=== PATIENT | male | born 1960 | race Caucasian/White ===

== ENCOUNTER 2016-06-10 13:45 | Emergency (ER) | payer MEDICARE ==
[2016-06-10 13:53] VITALS: BP 148/97
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
== END 2016-06-10 16:26 | disposition left against medical advice (07) ==
LOC: ER 13:45
DX: R10.9 Unspecified abdominal pain (principal); R68.83 Chills (without fever); R19.7 Diarrhea, unspecified; R11.0 Nausea; Z53.20 Procedure and treatment not carried out because of patient's decision for unspecified reasons; Z87.19 Personal history of other diseases of the digestive system; Z86.718 Personal history of other venous thrombosis and embolism; Z91.041 Radiographic dye allergy status; Z88.5 Allergy status to narcotic agent; Z88.6 Allergy status to analgesic agent; Z90.49 Acquired absence of other specified parts of digestive tract
CPT/HCPCS: 99281

== ENCOUNTER 2016-11-13 17:04 | Emergency (ER) | payer MEDICARE ==
[2016-11-13 17:29] VITALS: BP 124/80
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
--- NOTE | 2016-11-13 19:00 | RADIOLOGY REPORT (SQ) ---
EXAM DESCRIPTION: TIBIA FIBULA LEFT COMPLETED DATE/TIME: 11/13/2016 6:46 pm REASON FOR STUDY: Cellulitis of the skin mid pimentel COMPARISON: None. NUMBER OF VIEWS: Two views. TECHNIQUE: Two radiographic images acquired of the left tibia and fibula to include the knee and ank le in at least one projection. LIMITATIONS: None. FINDINGS: MINERALIZATION: Normal. BONES: No acute fracture or dislocation. No worrisome bone lesions. Old healed proximal fibular kami physis fracture. Partial visualization enthesopathy involving the patella and calcaneus. SOFT TISSUES: No obvious swelling or foreign body. OTHER: No other significant finding. IMPRESSION: NO ACUTE OSSEOUS ABNORMALITY. CHRONIC CHANGES ABOVE. TECHNICAL DOCUMENTATION: JOB ID: [id number] [employer]- All Rights Reserved
--- NOTE | 2016-11-13 19:04 | RADIOLOGY REPORT (SQ) ---
EXAM DESCRIPTION: TIBIA FIBULA RIGHT COMPLETED DATE/TIME: 11/13/2016 6:46 pm REASON FOR STUDY: Cellulitis of the skin mid pimentel COMPARISON: None. NUMBER OF VIEWS: Two views. TECHNIQUE: Two radiographic images acquired of the right tibia and fibula to include the knee and an kle in at least one projection. LIMITATIONS: None. FINDINGS: MINERALIZATION: Normal. BONES: 5 mm rounded lucent lesion within the distal tibial diaphysis best seen on the front dual vie w which appears to project just deep to the anterior cortex on the lateral view. There is subtle per iosteal reaction involving the anterior cortex at this level. No additional acute or significant os seous findings. SOFT TISSUES: No obvious swelling or foreign body. OTHER: No other significant finding. IMPRESSION: 5 MM LUCENT SUBCORTICAL LESION DISTAL TIBIAL DIAPHYSIS WITH ADJACENT PERIOSTEAL REACTION DETAILED ABOVE. THIS COULD BE SEQUELA TO CHRONIC INFECTION GIVEN HISTORY OF CELLULITIS HOWEVER D IFFERENTIAL INCLUDES METASTATIC DISEASE AND MYELOMA. RECOMMEND CORRELATION WITH ANY HISTORY OF KNOWN MALIGNANCY FURTHER EVALUATION WITH CONTRAST-ENHANCED MRI. TECHNICAL DOCUMENTATION: JOB ID: [id number]- All Rights Reserved
[2016-11-13 19:20] LABS: ABSOLUTE BASOPHILS # (AUTO) 0.1 10^3/uL (0.0-0.2); ABSOLUTE EOSINOPHILS # (AUTO) 0.6 10^3/uL (0.0-0.6); ABSOLUTE LYMPHOCYTES (AUTO) 1.7 10^3/uL (0.5-4.7); ABSOLUTE MONOCYTES (AUTO) 0.7 10^3/uL (0.1-1.4); ABSOLUTE NEUT (AUTO) 4.2 10^3/uL (1.7-8.2); BASOPHILS % (AUTO) 0.7 % (0-2); EOSINOPHILS % (AUTO) 8.4 % (0-6); HEMOGLOBIN 12.6 g/dL (13.5-17.0); HGB HCT DIFFERENCE -1.2; LYMPHOCYTES % (AUTO) 23.7 % (13-45); MEAN CORPUSCULAR HEMOGLOBIN 28.5 pg (27.0-33.4); MEAN CORPUSCULAR HGB CONC 32.4 g/dL (32.0-36.0); MEAN CORPUSCULAR VOLUME 88 fl (80-97); MONOCYTES % (AUTO) 9.4 % (3-13); RED BLOOD COUNT 4.43 10^6/uL (4.35-5.55); SEGMENTED NEUTROPHILS % (AUTO) 57.8 % (42-78); WHITE BLOOD COUNT 7.3 10^3/uL (4.0-10.5)
[2016-11-13 19:33] LABS: ALANINE AMINOTRANSFERASE 38 U/L (21-72); ALBUMIN 4.3 g/dL (3.5-5.0); ALKALINE PHOSPHATASE 105 U/L (38-126); ANION GAP 14 (5-19); ASPARTATE AMINO TRANSFERASE 30 U/L (17-59); BILIRUBIN,DIRECT 0.4 mg/dL (0.0-0.4); BILIRUBIN,TOTAL 0.7 mg/dL (0.2-1.3); BLOOD UREA NITROGEN 23 mg/dL (7-20); CALCIUM 9.4 mg/dL (8.4-10.2); CARBON DIOXIDE 25 mmol/L (22-30); CHLORIDE 104 mmol/L (98-107); GLUCOSE 96 mg/dL (75-110); POTASSIUM 5.6 mmol/L (3.6-5.0); SODIUM 142.6 mmol/L (137-145); TOTAL PROTEIN 8.3 g/dL (6.3-8.2)
[2016-11-13] MEDS ORDERED: DIAZEPAM 5 MG TABLET PO ONE (19:37)
[2016-11-13] MEDS ORDERED: CLINDAMYCIN 600 MG/D5W RTU 50 ML IV ONE (21:16)
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
== END 2016-11-13 22:30 | disposition home or self-care (01) ==
LOC: ER 17:04
DX: L03.119 Cellulitis of unspecified part of limb (principal); T81.4XXA Infection following a procedure, initial encounter; M79.604 Pain in right leg; M79.605 Pain in left leg; Z98.890 Other specified postprocedural states
CPT/HCPCS: 99283; 36415; 87040; 85025; 80053; 73590 ×2; A9270

== ENCOUNTER 2016-12-11 17:17 | Emergency (ER) | payer MEDICARE ==
[2016-12-11 17:23] VITALS: BP 147/79
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
[2016-12-11 20:02] LABS: ABSOLUTE BASOPHILS # (AUTO) 0.1 10^3/uL (0.0-0.2); ABSOLUTE EOSINOPHILS # (AUTO) 0.4 10^3/uL (0.0-0.6); ABSOLUTE LYMPHOCYTES (AUTO) 2.4 10^3/uL (0.5-4.7); ABSOLUTE MONOCYTES (AUTO) 0.6 10^3/uL (0.1-1.4); ABSOLUTE NEUT (AUTO) 4.2 10^3/uL (1.7-8.2); BASOPHILS % (AUTO) 0.9 % (0-2); EOSINOPHILS % (AUTO) 5.4 % (0-6); HEMATOCRIT 38.1 % (37.9-51.0); HEMOGLOBIN 12.8 g/dL (13.5-17.0); HGB HCT DIFFERENCE 0.3; LYMPHOCYTES % (AUTO) 31.8 % (13-45); MEAN CORPUSCULAR HEMOGLOBIN 28.8 pg (27.0-33.4); MEAN CORPUSCULAR HGB CONC 33.5 g/dL (32.0-36.0); MEAN CORPUSCULAR VOLUME 86 fl (80-97); MONOCYTES % (AUTO) 7.6 % (3-13); RED BLOOD COUNT 4.44 10^6/uL (4.35-5.55); RED CELL DISTRIBUTION WIDTH 14.5 % (11.5-14.0); SEGMENTED NEUTROPHILS % (AUTO) 54.3 % (42-78); WHITE BLOOD COUNT 7.7 10^3/uL (4.0-10.5)
[2016-12-11 20:26] LABS: ALANINE AMINOTRANSFERASE 26 U/L (21-72); ALBUMIN 4.6 g/dL (3.5-5.0); ALKALINE PHOSPHATASE 102 U/L (38-126); ANION GAP 15 (5-19); ASPARTATE AMINO TRANSFERASE 36 U/L (17-59); BILIRUBIN,DIRECT 0.4 mg/dL (0.0-0.4); BILIRUBIN,TOTAL 0.7 mg/dL (0.2-1.3); BLOOD UREA NITROGEN 21 mg/dL (7-20); CALCIUM 9.6 mg/dL (8.4-10.2); CARBON DIOXIDE 24 mmol/L (22-30); CHLORIDE 106 mmol/L (98-107); CREATININE RESULT 1.32 mg/dL (0.52-1.25); GLUCOSE 81 mg/dL (75-110); POTASSIUM 4.9 mmol/L (3.6-5.0); SODIUM 145.2 mmol/L (137-145); TOTAL PROTEIN 8.8 g/dL (6.3-8.2)
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
== END 2016-12-11 23:50 | disposition home or self-care (01) ==
LOC: ER 17:17
DX: I82.502 Chronic embolism and thrombosis of unspecified deep veins of left lower extremity (principal); I87.8 Other specified disorders of veins; L98.9 Disorder of the skin and subcutaneous tissue, unspecified
CPT/HCPCS: 36415; 80053; 85025; 87040; 99283

== ENCOUNTER 2017-10-12 16:06 | Emergency (ER) | payer MEDICARE ==
[2017-10-12] MEDS ORDERED: FENTANYL CITRATE INJ/PF 100 MCG/2 ML AMPUL IV ONE ×2 (17:06→18:39)
[2017-10-12 17:28] LABS: ABSOLUTE EOSINOPHILS # (AUTO) 0.2 10^3/uL (0.0-0.6); ABSOLUTE LYMPHOCYTES (AUTO) 1.2 10^3/uL (0.5-4.7); ABSOLUTE MONOCYTES (AUTO) 0.8 10^3/uL (0.1-1.4); ABSOLUTE NEUT (AUTO) 8.5 10^3/uL (1.7-8.2); BASOPHILS % (AUTO) 0.4 % (0-2); EOSINOPHILS % (AUTO) 1.9 % (0-6); HEMATOCRIT 48.3 % (37.9-51.0); LYMPHOCYTES % (AUTO) 11.1 % (13-45); MEAN CORPUSCULAR HEMOGLOBIN 27.3 pg (27.0-33.4); MEAN CORPUSCULAR VOLUME 83 fl (80-97); MONOCYTES % (AUTO) 7.1 % (3-13); PLATELET COUNT 437 10^3/uL (150-450); RED BLOOD COUNT 5.84 10^6/uL (4.35-5.55); RED CELL DISTRIBUTION WIDTH 15.6 % (11.5-14.0); SEGMENTED NEUTROPHILS % (AUTO) 79.5 % (42-78); TOTAL CELLS COUNTED % (AUTO) 100 %; WHITE BLOOD COUNT 10.7 10^3/uL (4.0-10.5)
[2017-10-12] MEDS ORDERED: METOCLOPRAMIDE HCL INJ/PF 10 MG/2 ML SDV IV ONE (17:33)
[2017-10-12 17:51] LABS: ALANINE AMINOTRANSFERASE 50 U/L (21-72); ALBUMIN 4.3 g/dL (3.5-5.0); ALKALINE PHOSPHATASE 81 U/L (38-126); ANION GAP 11 (5-19); ASPARTATE AMINO TRANSFERASE 55 U/L (17-59); BILIRUBIN,DIRECT 0.4 mg/dL (0.0-0.4); BILIRUBIN,TOTAL 0.8 mg/dL (0.2-1.3); BLOOD UREA NITROGEN 20 mg/dL (7-20); CALCIUM 9.7 mg/dL (8.4-10.2); CARBON DIOXIDE 29 mmol/L (22-30); CHLORIDE 102 mmol/L (98-107); GLUCOSE 87 mg/dL (75-110); LIPASE 38.1 U/L (23-300); POTASSIUM 5.6 mmol/L (3.6-5.0); SODIUM 142.4 mmol/L (137-145)
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
--- NOTE | 2017-10-12 18:07 | RADIOLOGY REPORT (SQ) ---
EXAM DESCRIPTION: CT LTD RENAL STONE PROTOCOL ON COMPLETED DATE/TIME: 10/12/2017 5:52 pm REASON FOR STUDY: right flank pain COMPARISON: 05/12/2012 TECHNIQUE: CT scan of the abdomen and pelvis performed without intravenous or oral contrast. Images reviewed with lung, soft tissue, and bone windows. Reconstructed coronal and sagittal MPR images revi ewed. All images stored on PACS. All CT scanners at this facility use dose modulation, iterative reconstruction, and/or weight based d osing when appropriate to reduce radiation dose to as low as reasonably achievable (ALARA). [facility]: Dose Right [facility]: CareDose [facility]: Dose Right [facility]: Teradose 4D [facility]: [employer] RADIATION DOSE: mGy. LIMITATIONS: None. FINDINGS: LOWER CHEST: No significant findings. No nodules or infiltrates. NON-CONTRASTED LIVER, SPLEEN, ADRENALS: Evaluation limited by lack of IV contrast. No identified sign ificant masses. PANCREAS: No masses. No peripancreatic inflammatory changes. GALLBLADDER: Surgically absent. RIGHT KIDNEY AND URETER: No suspicious masses. Assessment limited by lack of IV contrast. A tiny no nobstructing calculus is seen in the right kidney on image 47 series 601. No hydronephrosis or hydr oureter. LEFT KIDNEY AND URETER: No suspicious masses. Assessment limited by lack of IV contrast. No signifi cant calcifications. No hydronephrosis or hydroureter. AORTA AND RETROPERITONEUM: There are some mildly dilated loops of jejunum. There appears to be a tra nsition point just to the right of the midline. BOWEL AND PERITONEAL CAVITY: No obvious masses or inflammatory changes. No free fluid. APPENDIX: Normal. PELVIS, BLADDER, AND ABDOMINAL WALL:No abnormal masses. No free fluid. Bladder normal. BONES: Mild scoliosis and degenerative disc changes. Anterolisthesis of L5 on S1 with bilateral pars defects. OTHER: No other significant finding. IMPRESSION: 1. There is a tiny nonobstructing right renal calculus. There is no ureteral stone or obstruction. 2. Mildly dilated small bowel as described. Cannot entirely rule out a partial small bowel obstruct ion. 3. Anterolisthesis of L5 on S1 with bilateral spondylolysis. Mild scoliosis. Mild degenerative dis c changes. COMMENT: Quality ID # [id number]: Final reports with documentation of one or more dose reduction techniques (e.g., Automated exposure control, adjustment of the mA and/or kV according to patient size, use of iterative reconstruction technique) TECHNICAL DOCUMENTATION: JOB ID: [id number] [employer]- All Rights Reserved Reading location - IP/workstation name: [email or web address]
[2017-10-12 18:37] LABS: APPEARANCE,URINE SLIGHTLY-CLOUDY; BILIRUBIN,URINE NEGATIVE (NEGATIVE); COLOR,URINE AMBER; GLUCOSE, URINE NEGATIVE (NEGATIVE); KETONES,URINE 20 mg/dL (NEGATIVE); LEUKOCYTE ESTERASE,URINE TRACE (NEGATIVE); NITRITE,URINE NEGATIVE (NEGATIVE); PROTEIN,URINE 100 mg/dL (NEGATIVE); URINE SPECIFIC GRAVITY 1.026
[2017-10-12] MEDS ORDERED: DICYCLOMINE HCL 20 MG TABLET PO ONE (18:39)
[2017-10-12 19:04] VITALS: BP 142/74
== END 2017-10-12 19:14 | disposition home or self-care (01) ==
LOC: ER 16:06
DX: R10.11 Right upper quadrant pain (principal); R11.2 Nausea with vomiting, unspecified; Z90.49 Acquired absence of other specified parts of digestive tract
CPT/HCPCS: 96376; 99284; 96374; 96375; 36415; 83690; 85025; 80053; 81001; 76380; A9270; J3010; J2765; J3490

== ENCOUNTER 2018-01-16 18:52 | Emergency (ER) | payer MEDICARE ==
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
[2018-01-16] MEDS ORDERED: FENTANYL CITRATE INJ/PF 100 MCG/2 ML AMPUL IV PRN (19:41)
[2018-01-16] MEDS ORDERED: RINGERS SOLUTION,LACTATED 1,000 ML IV ONE (19:41)
--- NOTE | 2018-01-16 20:18 | RADIOLOGY REPORT (SQ) ---
EXAM DESCRIPTION: CT ABD/PELVIS NO ORAL OR IV COMPLETED DATE/TIME: 01/16/2018 7:57 pm REASON FOR STUDY: abdominal trauma COMPARISON: 05/03/2016 TECHNIQUE: CT scan of the abdomen and pelvis performed without intravenous or oral contrast. Images reviewed with lung, soft tissue, and bone windows. Reconstructed coronal and sagittal MPR images revi ewed. All images stored on PACS. All CT scanners at this facility use dose modulation, iterative reconstruction, and/or weight based d osing when appropriate to reduce radiation dose to as low as reasonably achievable (ALARA). [facility]: Dose Right [facility]: CareDose [facility]: Dose Right [facility]: Teradose 4D [facility]: Smart [employer] RADIATION DOSE: CT Rad equipment meets quality standard of care and radiation dose reduction techniq ues were employed. CTDIvol: 12.1 mGy. DLP: 643 mGy-cm.mGy. LIMITATIONS: None. FINDINGS: LOWER CHEST: No significant findings. No nodules or infiltrates. NON-CONTRASTED LIVER, SPLEEN, ADRENALS: Evaluation limited by lack of IV contrast. No identified sign ificant masses. PANCREAS: No masses. No peripancreatic inflammatory changes. GALLBLADDER: Surgically absent. RIGHT KIDNEY AND URETER: No suspicious masses. Assessment limited by lack of IV contrast. 1 mm ston e lower pole. No hydronephrosis or hydroureter. LEFT KIDNEY AND URETER: No suspicious masses. Assessment limited by lack of IV contrast. No signifi cant calcifications. No hydronephrosis or hydroureter. AORTA AND RETROPERITONEUM: No aneurysm. IVC filter. BOWEL AND PERITONEAL CAVITY: No obvious masses or inflammatory changes. No free fluid. APPENDIX: Not visualized. PELVIS, BLADDER, AND ABDOMINAL WALL:Chronic dilated pelvic veins. Postsurgical changes anterior abdo chayo wall. Chronic diastases of the rectus musculature. BONES: No acute findings. OTHER: No other significant finding. IMPRESSION: No acute findings. No significant change. COMMENT: Quality ID # [id number]: Final reports with documentation of one or more dose reduction techniques (e.g., Automated exposure control, adjustment of the mA and/or kV according to patient size, use of iterative reconstruction technique) TECHNICAL DOCUMENTATION: JOB ID: [id number] [employer]- All Rights Reserved Reading location - IP/workstation name: [email or web address]
[2018-01-16 20:20] LABS: ABSOLUTE BASOPHILS # (AUTO) 0.1 10^3/uL (0.0-0.2); ABSOLUTE EOSINOPHILS # (AUTO) 0.2 10^3/uL (0.0-0.6); ABSOLUTE LYMPHOCYTES (AUTO) 1.6 10^3/uL (0.5-4.7); ABSOLUTE MONOCYTES (AUTO) 0.8 10^3/uL (0.1-1.4); ABSOLUTE NEUT (AUTO) 4.3 10^3/uL (1.7-8.2); BASOPHILS % (AUTO) 1.8 % (0-2); EOSINOPHILS % (AUTO) 3.4 % (0-6); HEMATOCRIT 43.9 % (37.9-51.0); HEMOGLOBIN 14.6 g/dL (13.5-17.0); LYMPHOCYTES % (AUTO) 22.8 % (13-45); MEAN CORPUSCULAR HEMOGLOBIN 27.1 pg (27.0-33.4); MEAN CORPUSCULAR HGB CONC 33.2 g/dL (32.0-36.0); MEAN CORPUSCULAR VOLUME 82 fl (80-97); MONOCYTES % (AUTO) 11.3 % (3-13); PLATELET COUNT 364 10^3/uL (150-450); RED BLOOD COUNT 5.38 10^6/uL (4.35-5.55); RED CELL DISTRIBUTION WIDTH 17.3 % (11.5-14.0); SEGMENTED NEUTROPHILS % (AUTO) 60.7 % (42-78); TOTAL CELLS COUNTED % (AUTO) 100 %
[2018-01-16 20:33] LABS: ANION GAP 9 (5-19); BLOOD UREA NITROGEN 14 mg/dL (7-20); CALCIUM 9.6 mg/dL (8.4-10.2); CARBON DIOXIDE 29 mmol/L (22-30); CHLORIDE 103 mmol/L (98-107); CREATINE KINASE 641 U/L (55-170); GLUCOSE 89 mg/dL (75-110); POTASSIUM 5.1 mmol/L (3.6-5.0); SODIUM 141.1 mmol/L (137-145)
[2018-01-16] MEDS ORDERED: KETOROLAC TROMETHAMINE INJ/PF 30 MG/1 ML SDV IV ONE (21:02)
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
[2018-01-16 22:00] VITALS: BP 148/77
== END 2018-01-16 21:40 | disposition home or self-care (01) ==
LOC: ER 18:52
DX: S39.91XA Unspecified injury of abdomen, initial encounter (principal); R10.30 Lower abdominal pain, unspecified; W20.8XXA Other cause of strike by thrown, projected or falling object, initial encounter; Z87.19 Personal history of other diseases of the digestive system; Z98.890 Other specified postprocedural states; Z88.5 Allergy status to narcotic agent; Z91.041 Radiographic dye allergy status
CPT/HCPCS: 99284; 96361; 96374; 96375; 36415; 82550; 85025; 80048; 74176; J3010; J1885; J7120

== ENCOUNTER 2018-05-19 11:18 | Inpatient (IN) | payer MEDICARE ==
[2018-05-19] MEDS ORDERED: ASPIRIN 81 MG TABLET, CHEWABLE PO ONE (11:30)
[2018-05-19] MEDS ORDERED: DILTIAZEM HCL INJ 25 MG/5 ML VIAL IV ONE (11:45)
[2018-05-19] MEDS ORDERED: DILTIAZEM HCL/D5W 125 MG/125 ML RTUINJ IV PRN ×2 (11:45→17:01)
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
[2018-05-19 11:47] LABS: ABSOLUTE EOSINOPHILS # (AUTO) 0.1 10^3/uL (0.0-0.6); ABSOLUTE LYMPHOCYTES (AUTO) 1.4 10^3/uL (0.5-4.7); ABSOLUTE NEUT (AUTO) 4.1 10^3/uL (1.7-8.2); BASOPHILS % (AUTO) 0.6 % (0-2); EOSINOPHILS % (AUTO) 0.9 % (0-6); HEMATOCRIT 46.6 % (37.9-51.0); HEMOGLOBIN 15.3 g/dL (13.5-17.0); LYMPHOCYTES % (AUTO) 21.2 % (13-45); MEAN CORPUSCULAR HEMOGLOBIN 26.8 pg (27.0-33.4); MEAN CORPUSCULAR VOLUME 81 fl (80-97); MONOCYTES % (AUTO) 15.3 % (3-13); PLATELET COUNT 318 10^3/uL (150-450); RED BLOOD COUNT 5.73 10^6/uL (4.35-5.55); RED CELL DISTRIBUTION WIDTH 17.1 % (11.5-14.0); TOTAL CELLS COUNTED % (AUTO) 100 %; WHITE BLOOD COUNT 6.6 10^3/uL (4.0-10.5)
[2018-05-19] MEDS ORDERED: LORAZEPAM INJ 2 MG/1 ML VIAL IV ONE (12:02)
[2018-05-19 12:08] LABS: ALANINE AMINOTRANSFERASE 48 U/L (21-72); ALBUMIN 4.2 g/dL (3.5-5.0); ALKALINE PHOSPHATASE 51 U/L (38-126); ANION GAP 8 (5-19); ASPARTATE AMINO TRANSFERASE 53 U/L (17-59); BILIRUBIN,DIRECT 0.3 mg/dL (0.0-0.4); BILIRUBIN,TOTAL 1.1 mg/dL (0.2-1.3); BLOOD UREA NITROGEN 33 mg/dL (7-20); CARBON DIOXIDE 28 mmol/L (22-30); CHLORIDE 106 mmol/L (98-107); CREATINE KINASE 468 U/L (55-170); GLUCOSE 102 mg/dL (75-110); SODIUM 141.9 mmol/L (137-145); TOTAL PROTEIN 7.4 g/dL (6.3-8.2)
[2018-05-19 12:21] LABS: CREATINE KINASE MB 8.06 ng/mL (<4.55)
--- NOTE | 2018-05-19 12:22 | EKG REPORT ---
SEVERITY:- ABNORMAL ECG - ATRIAL FIBRILLATION, V-RATE 120-195 : Confirmed by: Darryl Rudd MD 19-May-2018 12:21:22
[2018-05-19 12:31] LABS: TROPONIN I 0.14 ng/mL
--- NOTE | 2018-05-19 12:32 | RADIOLOGY REPORT (SQ) ---
EXAM DESCRIPTION: CHEST SINGLE VIEW COMPLETED DATE/TIME: 05/19/2018 12:19 pm REASON FOR STUDY: chest COMPARISON: 05/09/2016, 01/20/2012 EXAM PARAMETERS: NUMBER OF VIEWS: One view. TECHNIQUE: Single frontal radiographic view of the chest acquired. RADIATION DOSE: NA LIMITATIONS: None. FINDINGS: LUNGS AND PLEURA: Stable lingular scarring. No new Opacities, masses or pneumothorax. No pleural effusion. MEDIASTINUM AND HILAR STRUCTURES: No masses. Contour normal. HEART AND VASCULAR STRUCTURES: Heart normal in size. Normal vasculature. BONES: No acute findings. HARDWARE: None in the chest. OTHER: No other significant finding. IMPRESSION: No evidence of acute cardiopulmonary process. TECHNICAL DOCUMENTATION: JOB ID: [id number] [employer]- All Rights Reserved Reading location - IP/workstation name: [email or web address]
[2018-05-19] MEDS ORDERED: ONDANSETRON 4 MG TAB.RAPDIS PO PRN (14:52)
[2018-05-19] MEDS ORDERED: DOCUSATE SODIUM 100 MG CAPSULE PO PRN (14:52)
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
[2018-05-19] MEDS: LORAZEPAM 1 MG TABLET PO PRN ×2 (16:42→21:13)
[2018-05-19] MEDS: ASPIRIN 81 MG TABLET, ENT COATED PO SCH (18:17)
[2018-05-19] MEDS: APIXABAN 5 MG TABLET PO SCH (18:18)
[2018-05-19] MEDS: DILTIAZEM HCL 60 MG TABLET PO SCH ×2 (18:18→23:14)
[2018-05-19] MEDS: FAMOTIDINE 20 MG TABLET PO SCH (21:08)
[2018-05-19] MEDS ORDERED: QUETIAPINE FUMARATE 100 MG TABLET PO SCH (22:00)
[2018-05-19] MEDS ORDERED: (PENDING PHARMACY ID) (Quetiapine Fumarate [Seroquel] 400 MG) PO SCH (22:00)
[2018-05-19] MEDS ORDERED: (PENDING PHARMACY ID) (Quetiapine Fumarate [Seroquel] 300 MG) PO SCH (22:00)
[2018-05-19] MEDS ORDERED: MELATONIN 5 MG TABLET PO SCH (22:00)
[2018-05-19] MEDS ORDERED: ZOLPIDEM TARTRATE 5 MG TABLET PO SCH (22:00)
[2018-05-19] MEDS ORDERED: (PENDING PHARMACY ID) (Melatonin [Melatonin] 10 MG) PO SCH (22:00)
[2018-05-19] MEDS ORDERED: (PENDING PHARMACY ID) (Buprenorphine Hcl/Naloxone Hcl [Suboxone 8 Mg-2 Mg Sl Film] 1 FILM) SL SCH ×2 (22:00)
[2018-05-19] MEDS ORDERED: (PENDING PHARMACY ID) (Zolpidem Tartrate [Ambien] 10 MG) PO SCH (22:00)
[2018-05-19] MEDS ORDERED: SUBOXONE SL SCH (22:00)
[2018-05-19] MEDS: SUBOXONE SL SCH (22:42)
[2018-05-19] MEDS: BUSPIRONE HCL 10 MG TABLET PO SCH (22:44)
[2018-05-20] MEDS ORDERED: DILTIAZEM HCL 60 MG TABLET PO ONE (01:11)
[2018-05-20] MEDS ORDERED: METOPROLOL TARTRATE 100 MG TABLET PO ONE (01:11)
[2018-05-20] MEDS: LORAZEPAM 1 MG TABLET PO PRN ×3 (01:30→10:00)
[2018-05-20] MEDS ORDERED: DILTIAZEM HCL 180 MG CAPSULE.CR PO SCH (06:00)
[2018-05-20 07:32] LABS: ABSOLUTE EOSINOPHILS # (AUTO) 0.1 10^3/uL (0.0-0.6); ABSOLUTE LYMPHOCYTES (AUTO) 1.3 10^3/uL (0.5-4.7); ABSOLUTE MONOCYTES (AUTO) 0.7 10^3/uL (0.1-1.4); ABSOLUTE NEUT (AUTO) 4.8 10^3/uL (1.7-8.2); BASOPHILS % (AUTO) 0.7 % (0-2); EOSINOPHILS % (AUTO) 0.8 % (0-6); HEMATOCRIT 47.3 % (37.9-51.0); HEMOGLOBIN 15.7 g/dL (13.5-17.0); LYMPHOCYTES % (AUTO) 18.3 % (13-45); MEAN CORPUSCULAR HEMOGLOBIN 26.7 pg (27.0-33.4); MEAN CORPUSCULAR HGB CONC 33.2 g/dL (32.0-36.0); MEAN CORPUSCULAR VOLUME 81 fl (80-97); MONOCYTES % (AUTO) 10.7 % (3-13); PLATELET COUNT 302 10^3/uL (150-450); RED BLOOD COUNT 5.88 10^6/uL (4.35-5.55); RED CELL DISTRIBUTION WIDTH 16.5 % (11.5-14.0); SEGMENTED NEUTROPHILS % (AUTO) 69.5 % (42-78); TOTAL CELLS COUNTED % (AUTO) 100 %; WHITE BLOOD COUNT 6.9 10^3/uL (4.0-10.5)
[2018-05-20 07:40] LABS: ANION GAP 8 (5-19); BLOOD UREA NITROGEN 26 mg/dL (7-20); CALCIUM 8.9 mg/dL (8.4-10.2); CARBON DIOXIDE 23 mmol/L (22-30); CHLORIDE 106 mmol/L (98-107); GLUCOSE 114 mg/dL (75-110); POTASSIUM 5.8 mmol/L (3.6-5.0); SODIUM 136.7 mmol/L (137-145)
--- NOTE | 2018-05-20 07:44 | EKG REPORT ---
SEVERITY:- ABNORMAL ECG - ATRIAL FIBRILLATION : Confirmed by: Darryl Rudd MD 20-May-2018 07:43:51
[2018-05-20] MEDS ORDERED: DIGOXIN INJ 0.5 MG/2 ML AMPULE ONE (08:03)
[2018-05-20] MEDS: SUBOXONE SL SCH (08:30)
[2018-05-20] MEDS: APIXABAN 5 MG TABLET PO SCH (09:59)
[2018-05-20] MEDS: ASPIRIN 81 MG TABLET, ENT COATED PO SCH (09:59)
[2018-05-20] MEDS: FAMOTIDINE 20 MG TABLET PO SCH (10:00)
[2018-05-20] MEDS ORDERED: IRON PO SCH (10:00)
[2018-05-20] MEDS: BUSPIRONE HCL 10 MG TABLET PO SCH (10:00)
[2018-05-20] MEDS ORDERED: MULTIVIT MIN PO SCH (10:00)
[2018-05-20] MEDS ORDERED: MULTIVITAMINS W-IRON TABLET, CHEWABLE PO SCH (10:00)
[2018-05-20] MEDS ORDERED: [UNRECOGNIZED DRUG - OTHER] PO SCH (10:00)
[2018-05-20] MEDS ORDERED: METOPROLOL SUCCINATE 50 MG TAB.SR.24H PO SCH (10:00)
[2018-05-20] MEDS ORDERED: FOLIC PO SCH (10:00)
[2018-05-20 14:34] VITALS: BP 133/85
--- NOTE | 2018-05-20 18:55 | PDOC DISCHARGE SUMMARY ---
General - Admit/Disc Date/PCP Admission Date/Primary Care Provider: 05/19/18 14:52 Discharge Date: 05/20/18 - Discharge Diagnosis (1) Atrial fibrillation with RVR Is this a current diagnosis for this admission?: Yes Summary: The patient exhibited the most control with extended release diltiazem and digoxin. He will be discharged on extended release diltiazem 360 mg daily as well as 0.125 mg of digoxin. I have referred him to Dr. Seymour as an outpatient. He also started the patient on apixaban for anticoagulation. (2) Low testosterone in male Is this a current diagnosis for this admission?: Yes Summary: The patient has been using AndroGel. I did check his serum testosterone level. It was 2009. Normal range for this laboratory is up to 623. I told the patient that he must stop the testosterone supplement and not use it until a level is rechecked. The markedly elevated levels could be contributing to mood changes and potentially cardiac issues. (3) Dehydration Is this a current diagnosis for this admission?: Yes Summary: The patient had an elevated BUN at the time of admission. His glomerular filtration rate was greater than 60. He did not have an acute kidney injury and his BUN improved overnight. (4) Depression with anxiety Is this a current diagnosis for this admission?: Yes Summary: Continue home medications. - Additional Information Resuscitation Status: Full Code Discharge Diet: Cardiac Discharge Activity: Balance Activity w/Rest Prescriptions: Apixaban [Eliquis 5 mg Tablet] 5 mg PO BID 30 Days #60 tablet Digoxin 125 mcg PO DAILY 30 Days #30 tablet Diltiazem HCl [Cardizem Cd 180 mg Capsule] 360 mg PO Q6AM 30 Days #30 capsule.cr Home Medications: Melatonin 10 mg PO QHS 08/13/12 Aspirin [Aspirin EC] 81 mg PO DAILY 05/10/16 Buprenorphine HCl/Naloxone HCl [Suboxone 8 mg-2 mg Sl Film] 1 film SL Q12 05/19/18 Buspirone HCl [Buspar 10 mg Tablet] 10 mg PO Q12 05/19/18 Multivit-Min/Iron/Folic/Vit K1 [Centrum Chewables Adult Chw Tb] 1 each PO DAILY 05/19/18 Quetiapine Fumarate [Seroquel 100 mg Tablet] 700 mg PO QHS 05/19/18 Zolpidem Tartrate [Ambien] 10 mg PO QHS 05/19/18 Apixaban [Eliquis 5 mg Tablet] 5 mg PO BID 30 Days #60 tablet 05/20/18 Digoxin 125 mcg PO DAILY 30 Days #30 tablet 05/20/18 Diltiazem HCl [Cardizem Cd 180 mg Capsule] 360 mg PO Q6AM 30 Days #30 capsule.cr 05/20/18 Docusate Sodium [Colace 100 mg Capsule] 100 mg PO BIDP PRN capsule 05/20/18 Quetiapine Fumarate [Seroquel 100 mg Tablet] 700 mg PO QHS tablet 05/20/18 History of Present Illness Patient complains of: Rapid heartbeat History of Present Illness: The patient was working in his yard the day before admission. While cutting down a tree it almost fell on him. It was quite a startling event. From then on he noticed some discomfort in his chest. He had increased anxiety. He had trouble sleeping. At the gym the next morning the exercise equipment monitoring manager revealed a pulse of 180. He went to urgent care and they confirmed his tachycardia. He then presented to the emergency department. Hospital Course Hospital Course: The patient was initially placed on diltiazem infusion. He initially exhibited good control but later in the evening metoprolol was added. He was still having some breakthrough tachycardia and he was given digoxin. The combination of digoxin and diltiazem seemed most effective. Unfortunately the patient refused to comply with his cardiac diet. He refused to acknowledge that anything was wrong with his heart. He wanted to catch up and eventually ordered a pizza deliver to his room. He was threatening to leave AGAINST MEDICAL ADVICE. Because his heart rate was in the 70s I did send him home on extended release diltiazem 360 mg a day as well as digoxin 0.125 mg daily. He was also started on apixaban for anticoagulation. We set up an appointment for follow-up with cardiology after discharge. I did tell him not to go to the gym until he sees cardiology. In addition I instructed him not to utilize his AndroGel until a repeat laboratory study reveals that he is back in the normal range. Physical Exam Vital Signs: Temp Pulse Resp BP Pulse Ox 98.7 F 48 L 18 133/85 H 97 05/20/18 14:21 05/20/18 14:21 05/20/18 14:21 05/20/18 14:21 05/20/18 14:21 Intake & Output 05/19/18 05/20/18 05/21/18 06:59 06:59 06:59 Intake Total 676 525 Output Total 625 Balance 51 525 Weight 94.3 kg General appearance: PRESENT: no acute distress Respiratory exam: PRESENT: clear to auscultation natividad, symmetrical, unlabored. ABSENT: rales, rhonchi, wheezes Cardiovascular exam: PRESENT: irregular rhythm GI/Abdominal exam: PRESENT: normal bowel sounds, soft. ABSENT: distended, tenderness Neurological exam: PRESENT: alert, awake, oriented to person, oriented to place, oriented to time, oriented to situation Psychiatric exam: PRESENT: anxious Results Laboratory Results: 05/20/18 07:03 05/20/18 07:03 05/20/18 05/20/18 07:03 07:03 WBC 6.9 RBC 5.88 H Hgb 15.7 Hct 47.3 MCV 81 MCH 26.7 L MCHC 33.2 RDW 16.5 H Plt Count 302 Seg Neutrophils % 69.5 Lymphocytes % 18.3 Monocytes % 10.7 Eosinophils % 0.8 Basophils % 0.7 Absolute Neutrophils 4.8 Absolute Lymphocytes 1.3 Absolute Monocytes 0.7 Absolute Eosinophils 0.1 Absolute Basophils 0.0 Sodium 136.7 L Potassium 5.8 H Chloride 106 Carbon Dioxide 23 Anion Gap 8 BUN 26 H Creatinine 1.18 Est GFR ( Amer) > 60 Est GFR (Non-Af Amer) > 60 Glucose 114 H Calcium 8.9 Magnesium 2.0 05/19/18 05/19/18 05/19/18 10:45 10:45 15:54 Creatine Kinase 468 H CK-MB (CK-2) 8.06 H Troponin I 0.140 0.143 05/20/18 07:03 Creatine Kinase CK-MB (CK-2) Troponin I 0.088 Impressions: Chest X-Ray 05/19/18 11:30 IMPRESSION: No evidence of acute cardiopulmonary process. Qualifiers - * PATIENT BEING DISCHARGED WITH ANY OF THE FOLLOWING DIAGNOSIS: No Plan Discharge Plan: The patient will be discharged. Unfortunately he is not going to follow a cardiac diet and he exhibited this by blatantly ordering a pizza to be delivered to his room. Hopefully he will continue the prescribed medications. In addition hopefully he will follow the advice of not using any AndroGel until he sees his physician for repeat blood work. It will likely take several months for the serum testosterone level to drift back down to the normal range. Time Spent: Greater than 30 Minutes
--- NOTE | 2018-05-20 23:07 | XCELERA REPORT ---
[address] [address] Transthoracic Echocardiogram Report Name: CELINE NAVARRO Age: 58 yrs Gender: Male : 1960 Patient Status: Inpatient Patient Location: [address] [place] [address] Study Date: 05/20/2018 10:09 AM Procedure: A two-dimensional transthoracic echocardiogram with color flow and Doppler was performed. The study was technically adequate with some images being suboptimal in quality. Reason For Study: New A. fib History: ATRIAL FIBRILLATION. Ordering Physician: TONY LOPEZ Performed By: Roxane Us Interpretation Summary The left ventricle is normal in size. There is normal left ventricular wall thickness. LV EF is 60% Left ventricular systolic function is normal. The left ventricular wall motion is normal. There is no thrombus. The right ventricle is grossly normal size. The right atrium is normal. The left atrium is moderately dilated. There is no evidence of mitral valve prolapse. There is no vegetation seen on the mitral valve. There is no mitral valve stenosis. There is a trace to mild amount of mitral regurgitation There is no aortic valvular vegetation. There is no aortic valve stenosis There is no LVOT obstruction. There is a trace to mild amount of aortic regurgitation There is no tricuspid stenosis. There is a trace amount of tricuspid regurgitation Unable to calculate RVSP due lack of TR jet. There is no pulmonic valvular stenosis. There is no pulmonic valvular regurgitation. The aortic root is normal size. There is no pericardial effusion. MMode/2D Measurements & Calculations IVSd: 0.90 cm LVIDd: 5.3 cm FS: 32.6 % Ao root diam: 3.1 cm LVIDs: 3.6 cm EDV(Teich): 137.1 ml Ao root area: 7.7 cm2 LVPWd: 1.1 cm ESV(Teich): 54.1 ml EF(Teich): 60.5 % Doppler Measurements & Calculations MV E max pedro: MV dec slope: Ao V2 max: AI max pedro: 102.1 cm/sec 147.9 cm/sec 311.7 cm/sec MV A max pedro: 434.0 cm/sec2 Ao max PG: AI max P.9 mmHg 26.8 cm/sec MV dec time: 8.8 mmHg AI dec slope: MV E/A: 3.8 0.24 sec 203.2 cm/sec2 AI P1/2t: 449.4 msec LV V1 max PG: PA V2 max: 3.6 mmHg 77.9 cm/sec LV V1 max: PA max P.4 mmHg 94.4 cm/sec LV dP/dt: 2807 mmHg/s Left Ventricle The left ventricle is normal in size. There is normal left ventricular wall thickness. LV EF is 60%. Left ventricular systolic function is normal. LV diastolic function could not be adequately assessed due to atrial fibrilation. The left ventricular wall motion is normal. There is no thrombus. Right Ventricle The right ventricle is grossly normal size. Atria The right atrium is normal. The left atrium is moderately dilated. Mitral Valve There is no evidence of mitral valve prolapse. There is no vegetation seen on the mitral valve. There is no mitral valve stenosis. There is a trace to mild amount of mitral regurgitation. Aortic Valve There is no aortic valvular vegetation. There is no aortic valve stenosis. There is no LVOT obstruction. There is a trace to mild amount of aortic regurgitation. Tricuspid Valve There is no tricuspid stenosis. There is a trace amount of tricuspid regurgitation. Unable to calculate RVSP due lack of TR jet. Pulmonic Valve There is no pulmonic valvular stenosis. There is no pulmonic valvular regurgitation. Great Vessels The aortic root is normal size. Effusions There is no pericardial effusion. : TONY LOPEZ > Arlette Seymour
== END 2018-05-20 14:45 | disposition home or self-care (01) | DRG 310 ==
LOC: ER 11:18 → UNDOADMIN 13:23 → EH 13:23 → 3S 20:40
PROVIDERS: ADMIT Internal Medicine; ATTEND Internal Medicine
DX: I48.91 Unspecified atrial fibrillation (principal); E86.0 Dehydration; Z79.890 Hormone replacement therapy; F41.8 Other specified anxiety disorders; Z79.01 Long term (current) use of anticoagulants; Z86.718 Personal history of other venous thrombosis and embolism; Z90.49 Acquired absence of other specified parts of digestive tract; Z88.6 Allergy status to analgesic agent; Z91.041 Radiographic dye allergy status; E29.1 Testicular hypofunction
CPT/HCPCS: 36415; 71045; 80048; 80053; 82550; 82553; 83735; 84403; 84443; 84484; 85025; 93005; 93010; 93306; 96374; 99291; J1160; J2060; J3490

== ENCOUNTER 2018-05-21 05:47 | Emergency (ER) | payer MEDICARE ==
[2018-05-21] MEDS ORDERED: ASPIRIN 81 MG TABLET, CHEWABLE PO ONE (05:59)
[2018-05-21 06:40] LABS: ABSOLUTE LYMPHOCYTES (AUTO) 0.5 10^3/uL (0.5-4.7); ABSOLUTE MONOCYTES (AUTO) 0.6 10^3/uL (0.1-1.4); ABSOLUTE NEUT (AUTO) 5.1 10^3/uL (1.7-8.2); BASOPHILS % (AUTO) 0.1 % (0-2); EOSINOPHILS % (AUTO) 0.1 % (0-6); HEMATOCRIT 45.8 % (37.9-51.0); LYMPHOCYTES % (AUTO) 7.5 % (13-45); MEAN CORPUSCULAR HEMOGLOBIN 26.6 pg (27.0-33.4); MEAN CORPUSCULAR HGB CONC 32.7 g/dL (32.0-36.0); MEAN CORPUSCULAR VOLUME 82 fl (80-97); MONOCYTES % (AUTO) 9.9 % (3-13); PLATELET COUNT 342 10^3/uL (150-450); RED BLOOD COUNT 5.62 10^6/uL (4.35-5.55); SEGMENTED NEUTROPHILS % (AUTO) 82.4 % (42-78); TOTAL CELLS COUNTED % (AUTO) 100 %; WHITE BLOOD COUNT 6.1 10^3/uL (4.0-10.5)
[2018-05-21 07:01] LABS: ALANINE AMINOTRANSFERASE 46 U/L (21-72); ALBUMIN 4.1 g/dL (3.5-5.0); ALKALINE PHOSPHATASE 54 U/L (38-126); ANION GAP 9 (5-19); ASPARTATE AMINO TRANSFERASE 26 U/L (17-59); BILIRUBIN,DIRECT 0.2 mg/dL (0.0-0.4); BILIRUBIN,TOTAL 0.7 mg/dL (0.2-1.3); BLOOD UREA NITROGEN 27 mg/dL (7-20); CALCIUM 9.1 mg/dL (8.4-10.2); CARBON DIOXIDE 23 mmol/L (22-30); CHLORIDE 109 mmol/L (98-107); CREATINE KINASE 163 U/L (55-170); GLUCOSE 152 mg/dL (75-110); SODIUM 141.1 mmol/L (137-145); TOTAL PROTEIN 6.9 g/dL (6.3-8.2)
[2018-05-21 07:09] LABS: CREATINE KINASE MB 4.84 ng/mL (<4.55)
--- NOTE | 2018-05-21 07:09 | RADIOLOGY REPORT (SQ) ---
EXAM DESCRIPTION: X-ray single view chest. CLINICAL HISTORY: 58 years Male, chest pain and SOB COMPARISON: 05/19/2018 TECHNIQUE: Single portable view of the chest performed on 05/21/2018 at 6:52 AM FINDINGS: The lungs are relatively well expanded. There is mild elevation of the left hemidiaphragm. There is parenchymal scarring or atelectasis in the inferior hemithoraces. There is no dense airspace consolidation identified. There is no evidence of a pneumothorax. The cardiac silhouette is normal in size and configuration. The mediastinal contours are normal. No acute osseous abnormality is identified. No focal soft tissue abnormalities are seen. Lines and tubes: None. IMPRESSION: 1. Scarring and/or atelectasis in the inferior hemithoraces. 2. Mild elevation of the left hemidiaphragm.
[2018-05-21 07:21] LABS: TROPONIN I 0.063 ng/mL
[2018-05-21 07:31] LABS: POTASSIUM 4.8 mmol/L (3.6-5.0)
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
--- NOTE | 2018-05-21 07:57 | EKG REPORT ---
SEVERITY:- OTHERWISE NORMAL ECG - SINUS TACHYCARDIA VENTRICULAR PREMATURE COMPLEX : Confirmed by: Darryl Rudd MD 21-May-2018 07:56:14
[2018-05-21] MEDS ORDERED: LORAZEPAM 1 MG TABLET PO ONE (10:32)
[2018-05-21 11:25] VITALS: BP 146/94
== END 2018-05-21 11:39 | disposition left against medical advice (07) ==
LOC: ER 05:47
DX: R07.89 Other chest pain (principal); R06.02 Shortness of breath; I48.91 Unspecified atrial fibrillation
CPT/HCPCS: 93005; 99285; 36415; 82553; 82550; 85025; 80053; 84484; 71045; 93010; A9270 ×2

== ENCOUNTER 2018-05-31 13:27 | Emergency (ER) | payer MEDICARE ==
[2018-05-31 13:39] VITALS: BP 137/63
--- NOTE | 2018-05-31 15:20 | RADIOLOGY REPORT (SQ) ---
EXAM DESCRIPTION: SHOULDER RIGHT 2 OR MORE VIEWS COMPLETED DATE/TIME: 05/31/2018 2:31 pm REASON FOR STUDY: right shoulder pain COMPARISON: None. NUMBER OF VIEWS: Three views. TECHNIQUE: Internal rotation, external rotation, and Y view images acquired of the right shoulder. LIMITATIONS: None. FINDINGS: MINERALIZATION: Normal. BONES: No acute fracture or dislocation. No worrisome bone lesions. JOINTS: Mild acromioclavicular arthrosis. Very small ossific density superior to the acromioclavicu lar joint, nonspecific finding. No dislocation. VISUALIZED LUNGS AND RIBS: No pneumothorax. Old healed right anterior sixth rib fracture. SOFT TISSUES: No radiopaque foreign body. OTHER: No other significant finding. IMPRESSION: 1. No acute osseous findings. 2. Mild acromioclavicular arthrosis. TECHNICAL DOCUMENTATION: JOB ID: [id number]- All Rights Reserved Reading location - IP/workstation name: [email or web address]
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
--- NOTE | 2018-05-31 18:38 | EKG REPORT ---
SEVERITY:- NORMAL ECG - SINUS RHYTHM : Confirmed by: Arlette Seymour MD 31-May-2018 18:36:36
== END 2018-06-01 01:00 | disposition home or self-care (01) ==
LOC: ER 13:27
DX: M25.511 Pain in right shoulder (principal); R07.9 Chest pain, unspecified; X50.0XXA Overexertion from strenuous movement or load, initial encounter; Y93.B3 Activity, free weights; I10 Essential (primary) hypertension
CPT/HCPCS: 93005; 93010; 99283

== ENCOUNTER 2018-06-06 05:53 | Emergency (ER) | payer MEDICARE ==
[2018-06-06 06:09] VITALS: BP 156/79
[2018-06-06 06:52] LABS: ABSOLUTE BASOPHILS # (AUTO) 0.1 10^3/uL (0.0-0.2); ABSOLUTE EOSINOPHILS # (AUTO) 0.2 10^3/uL (0.0-0.6); ABSOLUTE LYMPHOCYTES (AUTO) 1.2 10^3/uL (0.5-4.7); ABSOLUTE MONOCYTES (AUTO) 0.8 10^3/uL (0.1-1.4); ABSOLUTE NEUT (AUTO) 4.1 10^3/uL (1.7-8.2); BASOPHILS % (AUTO) 0.9 % (0-2); EOSINOPHILS % (AUTO) 2.4 % (0-6); HEMOGLOBIN 15.3 g/dL (13.5-17.0); LYMPHOCYTES % (AUTO) 18.8 % (13-45); MEAN CORPUSCULAR HEMOGLOBIN 27.2 pg (27.0-33.4); MEAN CORPUSCULAR HGB CONC 32.6 g/dL (32.0-36.0); MEAN CORPUSCULAR VOLUME 83 fl (80-97); MONOCYTES % (AUTO) 12.1 % (3-13); PLATELET COUNT 166 10^3/uL (150-450); RED BLOOD COUNT 5.64 10^6/uL (4.35-5.55); RED CELL DISTRIBUTION WIDTH 17.7 % (11.5-14.0); SEGMENTED NEUTROPHILS % (AUTO) 65.8 % (42-78); TOTAL CELLS COUNTED % (AUTO) 100 %; WHITE BLOOD COUNT 6.2 10^3/uL (4.0-10.5)
[2018-06-06 06:57] LABS: INTERNATIONAL RATION (INR) 0.89; PROTHROMBIN TIME 12.5 SEC (11.4-15.4)
[2018-06-06] MEDS ORDERED: BUSPIRONE HCL 10 MG TABLET PO ONE (07:06)
[2018-06-06 07:20] LABS: ALANINE AMINOTRANSFERASE 48 U/L (21-72); ALKALINE PHOSPHATASE 54 U/L (38-126); ANION GAP 6 (5-19); ASPARTATE AMINO TRANSFERASE 30 U/L (17-59); BILIRUBIN,DIRECT 0.2 mg/dL (0.0-0.4); BILIRUBIN,TOTAL 0.7 mg/dL (0.2-1.3); BLOOD UREA NITROGEN 29 mg/dL (7-20); CARBON DIOXIDE 28 mmol/L (22-30); CHLORIDE 107 mmol/L (98-107); CREATINE KINASE 102 U/L (55-170); GLUCOSE 136 mg/dL (75-110); POTASSIUM 4.6 mmol/L (3.6-5.0); SODIUM 141.2 mmol/L (137-145); TOTAL PROTEIN 6.3 g/dL (6.3-8.2)
[2018-06-06 07:24] LABS: DIGOXIN 0.53 ng/mL (0.8-2.0)
[2018-06-06 07:32] LABS: CREATINE KINASE MB 2.97 ng/mL (<4.55)
[2018-06-06 07:36] LABS: TROPONIN I < 0.012 ng/mL
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
--- NOTE | 2018-06-06 07:52 | EKG REPORT ---
SEVERITY:- BORDERLINE ECG - SINUS RHYTHM BORDERLINE T ABNORMALITIES, INFERIOR LEADS : Confirmed by: Arlette Seymour MD 06-Jun-2018 07:52:22
== END 2018-06-06 07:10 | disposition left against medical advice (07) ==
LOC: ER 05:53
DX: Z53.21 Procedure and treatment not carried out due to patient leaving prior to being seen by health care provider (principal); R07.9 Chest pain, unspecified; R06.00 Dyspnea, unspecified; I42.0 Dilated cardiomyopathy; I48.91 Unspecified atrial fibrillation; I50.9 Heart failure, unspecified; I11.0 Hypertensive heart disease with heart failure; Z79.01 Long term (current) use of anticoagulants; Z79.899 Other long term (current) drug therapy
CPT/HCPCS: 36415; 80053; 80162; 82550; 82553; 83735; 84484; 85025; 85610; 93005; 93010; 99281

== ENCOUNTER 2018-06-19 17:46 | Emergency (ER) | payer MEDICARE ==
[2018-06-19] MEDS ORDERED: ASPIRIN 81 MG TABLET, CHEWABLE PO ONE (19:31)
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
--- NOTE | 2018-06-19 20:12 | EKG REPORT ---
SEVERITY:- ABNORMAL ECG - SINUS RHYTHM NONSPECIFIC INTRAVENTRICULAR CONDUCTION DELAY : Confirmed by: Yoni Hidalgo 19-Jun-2018 20:12:15
[2018-06-19 20:15] LABS: ABSOLUTE EOSINOPHILS # (AUTO) 0.1 10^3/uL (0.0-0.6); ABSOLUTE MONOCYTES (AUTO) 0.9 10^3/uL (0.1-1.4); ABSOLUTE NEUT (AUTO) 3.2 10^3/uL (1.7-8.2); BASOPHILS % (AUTO) 0.2 % (0-2); EOSINOPHILS % (AUTO) 1.9 % (0-6); HEMATOCRIT 49.1 % (37.9-51.0); HEMOGLOBIN 16.1 g/dL (13.5-17.0); LYMPHOCYTES % (AUTO) 31.3 % (13-45); MEAN CORPUSCULAR HEMOGLOBIN 27.4 pg (27.0-33.4); MEAN CORPUSCULAR HGB CONC 32.9 g/dL (32.0-36.0); MEAN CORPUSCULAR VOLUME 83 fl (80-97); MONOCYTES % (AUTO) 14.8 % (3-13); PLATELET COUNT 258 10^3/uL (150-450); RED BLOOD COUNT 5.89 10^6/uL (4.35-5.55); RED CELL DISTRIBUTION WIDTH 17.7 % (11.5-14.0); SEGMENTED NEUTROPHILS % (AUTO) 51.8 % (42-78); TOTAL CELLS COUNTED % (AUTO) 100 %; WHITE BLOOD COUNT 6.2 10^3/uL (4.0-10.5)
--- NOTE | 2018-06-19 20:50 | RADIOLOGY REPORT (SQ) ---
EXAM DESCRIPTION: XR CHEST 1 VIEW COMPLETED DATE/TME: 06/19/2018 19:31 CLINICAL HISTORY: 58 years, Male, chest pain, shortness of breath COMPARISON: 05/21/2018 chest NUMBER OF VIEWS: 1 TECHNIQUE: Portable chest LIMITATIONS: None. FINDINGS: Heart size at the upper limits of normal. Scarring left lung base. Lungs are otherwise clear. No pneumothorax IMPRESSION: No acute cardiopulmonary process copyright 2010 [employer]- All Rights Reserved
[2018-06-19 21:19] LABS: ALBUMIN 4.3 g/dL (3.5-5.0); ANION GAP 7 (5-19); BLOOD UREA NITROGEN 24 mg/dL (7-20); CALCIUM 9.3 mg/dL (8.4-10.2); CARBON DIOXIDE 28 mmol/L (22-30); CHLORIDE 105 mmol/L (98-107); GLUCOSE 87 mg/dL (75-110); POTASSIUM 4.9 mmol/L (3.6-5.0); SODIUM 140.2 mmol/L (137-145)
[2018-06-19 21:20] LABS: ALANINE AMINOTRANSFERASE 49 U/L (21-72); ALKALINE PHOSPHATASE 52 U/L (38-126); ASPARTATE AMINO TRANSFERASE 32 U/L (17-59); BILIRUBIN,DIRECT 0.2 mg/dL (0.0-0.4); BILIRUBIN,TOTAL 0.8 mg/dL (0.2-1.3); CREATINE KINASE 166 U/L (55-170); TOTAL PROTEIN 6.8 g/dL (6.3-8.2)
[2018-06-19 21:31] LABS: CREATINE KINASE MB 2.57 ng/mL (<4.55); NT PRO BNP 89 pg/mL (5-900)
[2018-06-19 21:32] LABS: TROPONIN I < 0.012 ng/mL
[2018-06-19] MEDS ORDERED: FUROSEMIDE INJ/PF 20 MG/2 ML SDV IV ONE (22:33)
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
[2018-06-20 00:29] VITALS: BP 128/74
== END 2018-06-20 00:52 | disposition home or self-care (01) ==
LOC: ER 17:46
DX: I50.9 Heart failure, unspecified (principal); R60.0 Localized edema; R06.02 Shortness of breath; R07.9 Chest pain, unspecified; I42.9 Cardiomyopathy, unspecified; I11.0 Hypertensive heart disease with heart failure
CPT/HCPCS: 93005; 99285; 96374; 36415; 82553; 82550; 85025; 80053; 84484; 83880; 71045; 93010; A9270; J1940

== ENCOUNTER 2018-06-25 20:09 | Emergency (ER) | payer MEDICARE ==
[2018-06-25 21:18] LABS: HEMATOCRIT 47.4 % (37.9-51.0); HEMOGLOBIN 15.8 g/dL (13.5-17.0); MEAN CORPUSCULAR HEMOGLOBIN 27.8 pg (27.0-33.4); MEAN CORPUSCULAR HGB CONC 33.3 g/dL (32.0-36.0); MEAN CORPUSCULAR VOLUME 84 fl (80-97); PLATELET COUNT 210 10^3/uL (150-450); RED BLOOD COUNT 5.68 10^6/uL (4.35-5.55); RED CELL DISTRIBUTION WIDTH 17.7 % (11.5-14.0); WHITE BLOOD COUNT 4.9 10^3/uL (4.0-10.5)
--- NOTE | 2018-06-25 21:20 | EKG REPORT ---
SEVERITY:- OTHERWISE NORMAL ECG - SINUS BRADYCARDIA : Confirmed by: Arlette Seymour MD 25-Jun-2018 21:20:00
[2018-06-25 21:25] LABS: ANION GAP 7 (5-19); BLOOD UREA NITROGEN 27 mg/dL (7-20); CALCIUM 9.1 mg/dL (8.4-10.2); CARBON DIOXIDE 32 mmol/L (22-30); CHLORIDE 103 mmol/L (98-107); GLUCOSE 97 mg/dL (75-110); POTASSIUM 4.8 mmol/L (3.6-5.0); SODIUM 142.2 mmol/L (137-145)
--- NOTE | 2018-06-25 21:56 | RADIOLOGY REPORT (SQ) ---
XR CHEST 1 VIEW HISTORY: cp. COMPARISON: 06/19/2018 FINDINGS: The heart size is normal. The lungs are clear. No pleural effusions or pneumothorax is seen. No acute bony findings. IMPRESSION: No evidence of acute cardiopulmonary disease.
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
[2018-06-26 00:45] VITALS: BP 127/65
== END 2018-06-26 00:45 | disposition home or self-care (01) ==
LOC: ER 20:09
DX: R07.89 Other chest pain (principal); R00.1 Bradycardia, unspecified; I10 Essential (primary) hypertension; Z91.041 Radiographic dye allergy status; Z88.5 Allergy status to narcotic agent; Z86.718 Personal history of other venous thrombosis and embolism
CPT/HCPCS: 36415; 71045; 80048; 84484; 85027; 93005; 93010; 99285

== ENCOUNTER 2018-07-05 14:47 | Emergency (ER) | payer MEDICARE ==
[2018-07-05 14:58] VITALS: BP 147/77
--- NOTE | 2018-07-07 10:18 | EKG REPORT ---
SEVERITY:- NORMAL ECG - SINUS RHYTHM : Confirmed by: Yoni Hidalgo 07-Jul-2018 10:18:05
== END 2018-07-05 18:56 | disposition left against medical advice (07) ==
LOC: ER 14:47
DX: Z53.21 Procedure and treatment not carried out due to patient leaving prior to being seen by health care provider (principal)
CPT/HCPCS: 93005; 93010

== ENCOUNTER 2018-07-18 14:57 | Emergency (ER) | payer MEDICARE ==
[2018-07-18 15:25] VITALS: BP 137/88
[2018-07-18] MEDS ORDERED: ASPIRIN 325 MG TABLET PO ONE (15:33)
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
[2018-07-18 16:23] LABS: HEMATOCRIT 48.4 % (37.9-51.0); HEMOGLOBIN 16.5 g/dL (13.5-17.0); MEAN CORPUSCULAR HEMOGLOBIN 28.2 pg (27.0-33.4); MEAN CORPUSCULAR HGB CONC 34.1 g/dL (32.0-36.0); MEAN CORPUSCULAR VOLUME 83 fl (80-97); PLATELET COUNT 261 10^3/uL (150-450); RED BLOOD COUNT 5.84 10^6/uL (4.35-5.55); RED CELL DISTRIBUTION WIDTH 17.4 % (11.5-14.0); WHITE BLOOD COUNT 4.4 10^3/uL (4.0-10.5)
[2018-07-18 16:39] LABS: ALANINE AMINOTRANSFERASE 66 U/L (21-72); ALBUMIN 4.1 g/dL (3.5-5.0); ALKALINE PHOSPHATASE 73 U/L (38-126); ANION GAP 11 (5-19); ASPARTATE AMINO TRANSFERASE 100 U/L (17-59); BILIRUBIN,DIRECT 0.3 mg/dL (0.0-0.4); BILIRUBIN,TOTAL 0.8 mg/dL (0.2-1.3); BLOOD UREA NITROGEN 23 mg/dL (7-20); CALCIUM 9.4 mg/dL (8.4-10.2); CARBON DIOXIDE 26 mmol/L (22-30); CHLORIDE 103 mmol/L (98-107); CREATINE KINASE 481 U/L (55-170); GLUCOSE 90 mg/dL (75-110); POTASSIUM 4.9 mmol/L (3.6-5.0); SODIUM 140.4 mmol/L (137-145); TOTAL PROTEIN 7.2 g/dL (6.3-8.2)
[2018-07-18 16:45] LABS: ABSOLUTE LYMPHOCYTES# (MANUAL) 1.6 10^3/uL (0.5-4.7); ABSOLUTE MONOCYTES # (MANUAL) 0.4 10^3/uL (0.1-1.4); ABSOLUTE NEUTROPHILS# (MANUAL) 2.3 10^3/uL (1.7-8.2); BASOPHILS % (MANUAL) 0 % (0-2); EOSINOPHILS % (MANUAL) 3 % (0-6); LYMPHOCYTES % (MANUAL) 37 % (13-45); MONOCYTES % (MANUAL) 8 % (3-13); SEGMENTED NEUTROPHILS % (MAN) 52 % (42-78); TOTAL CELLS COUNTED 100
[2018-07-18 16:47] LABS: ANISOCYTOSIS 1+; OVALOCYTES 1+; PLATELET COMMENT ADEQUATE; POIKILOCYTOSIS 1+; POLYCHROMASIA SLIGHT; TOXIC GRANULATION 1+
[2018-07-18 16:50] LABS: CREATINE KINASE MB 2.78 ng/mL (<4.55)
[2018-07-18 16:51] LABS: TROPONIN I < 0.012 ng/mL
--- NOTE | 2018-07-18 17:28 | RADIOLOGY REPORT (SQ) ---
EXAM DESCRIPTION: CHEST 2 VIEWS COMPLETED DATE/TIME: 07/18/2018 4:11 pm REASON FOR STUDY: cp COMPARISON: 06/25/2018. EXAM PARAMETERS: NUMBER OF VIEWS: two views TECHNIQUE: Digital Frontal and Lateral radiographic views of the chest acquired. RADIATION DOSE: NA LIMITATIONS: none FINDINGS: LUNGS AND PLEURA: There are linear densities noted at both lung bases which could represen t chronic scarring. Otherwise no acute infiltrate or effusion seen. MEDIASTINUM AND HILAR STRUCTURES: No masses or contour abnormalities. HEART AND VASCULAR STRUCTURES: Borderline cardiac size. The pulmonary vasculature is normal. BONES: No acute findings. HARDWARE: None in the chest. OTHER: No other significant finding. IMPRESSION: No significant interval change. TECHNICAL DOCUMENTATION: JOB ID: [id number] 2010 [employer]- All Rights Reserved Reading location - IP/workstation name: [email or web address]
--- NOTE | 2018-07-19 01:26 | EKG REPORT ---
SEVERITY:- NORMAL ECG - SINUS RHYTHM : Confirmed by: Arlette Seymour MD 19-Jul-2018 01:25:40
== END 2018-07-18 17:14 | disposition left against medical advice (07) ==
LOC: ER 14:57
DX: R07.9 Chest pain, unspecified (principal); I50.9 Heart failure, unspecified; I11.0 Hypertensive heart disease with heart failure
CPT/HCPCS: 93005; 36415; 82553; 82550; 85025; 80053; 84484; 71046; 93010; A9270

== ENCOUNTER 2018-07-20 05:09 | Emergency (ER) | payer MEDICARE ==
[2018-07-20 05:16] VITALS: BP 138/89
[2018-07-20] MEDS ORDERED: ASPIRIN 81 MG TABLET, CHEWABLE ONE (05:40)
[2018-07-20] MEDS ORDERED: LIDOCAINE 2% VISCOUS SOLN 20 ML UDCUP PO ONE (06:19)
[2018-07-20] MEDS ORDERED: MAG HYDROX/AL HYDROX/SIMETH SUSP 30 ML UDCUP PO ONE (06:19)
[2018-07-20 06:44] LABS: HEMATOCRIT 44.6 % (37.9-51.0); HEMOGLOBIN 15.5 g/dL (13.5-17.0); MEAN CORPUSCULAR HEMOGLOBIN 28.5 pg (27.0-33.4); MEAN CORPUSCULAR HGB CONC 34.7 g/dL (32.0-36.0); MEAN CORPUSCULAR VOLUME 82 fl (80-97); PLATELET COUNT 338 10^3/uL (150-450); RED BLOOD COUNT 5.42 10^6/uL (4.35-5.55); RED CELL DISTRIBUTION WIDTH 17.6 % (11.5-14.0); WHITE BLOOD COUNT 5.7 10^3/uL (4.0-10.5)
[2018-07-20 07:13] LABS: ALANINE AMINOTRANSFERASE 124 U/L (21-72); ALBUMIN 4.2 g/dL (3.5-5.0); ALKALINE PHOSPHATASE 70 U/L (38-126); ANION GAP 10 (5-19); ASPARTATE AMINO TRANSFERASE 136 U/L (17-59); BILIRUBIN,DIRECT 0.4 mg/dL (0.0-0.4); BILIRUBIN,TOTAL 1.1 mg/dL (0.2-1.3); BLOOD UREA NITROGEN 20 mg/dL (7-20); CALCIUM 9.7 mg/dL (8.4-10.2); CARBON DIOXIDE 25 mmol/L (22-30); CHLORIDE 104 mmol/L (98-107); CREATINE KINASE 209 U/L (55-170); GLUCOSE 89 mg/dL (75-110); POTASSIUM 4.7 mmol/L (3.6-5.0); TOTAL PROTEIN 7.5 g/dL (6.3-8.2)
--- NOTE | 2018-07-20 07:18 | EKG REPORT ---
SEVERITY:- OTHERWISE NORMAL ECG - DEFECTIVE EKG SINUS RHYTHM : Confirmed by: Darryl Rudd MD 20-Jul-2018 07:17:21
[2018-07-20 07:21] LABS: CREATINE KINASE MB 1.96 ng/mL (<4.55)
[2018-07-20 07:23] LABS: TROPONIN I < 0.012 ng/mL
[2018-07-20 07:29] LABS: ABSOLUTE LYMPHOCYTES# (MANUAL) 1.7 10^3/uL (0.5-4.7); ABSOLUTE MONOCYTES # (MANUAL) 0.6 10^3/uL (0.1-1.4); ABSOLUTE NEUTROPHILS# (MANUAL) 3.3 10^3/uL (1.7-8.2); ANISOCYTOSIS 1+; BAND NEUTROPHILS % (MANUAL) 1 % (3-5); BASOPHILS % (MANUAL) 0 % (0-2); EOSINOPHILS % (MANUAL) 2 % (0-6); LYMPHOCYTES % (MANUAL) 29 % (13-45); METAMYELOCYTES % (MANUAL) 1 % (0); MONOCYTES % (MANUAL) 10 % (3-13); OVALOCYTES 1+; PLATELET COMMENT ADEQUATE; POIKILOCYTOSIS 1+; SEGMENTED NEUTROPHILS % (MAN) 56 % (42-78); TOTAL CELLS COUNTED 100
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
== END 2018-07-20 07:52 | disposition left against medical advice (07) ==
LOC: ER 05:09
DX: R07.89 Other chest pain (principal); R10.13 Epigastric pain; H83.8X2 Other specified diseases of left inner ear; H92.02 Otalgia, left ear; I48.91 Unspecified atrial fibrillation; I50.9 Heart failure, unspecified; I11.0 Hypertensive heart disease with heart failure; F41.9 Anxiety disorder, unspecified; F32.9 Major depressive disorder, single episode, unspecified
CPT/HCPCS: 36415; 80053; 82550; 82553; 84484; 85025; 93005; 93010; 99281

== ENCOUNTER 2018-07-25 18:47 | Emergency (ER) | payer MEDICARE ==
[2018-07-25] MEDS ORDERED: ONDANSETRON HCL INJ/PF 4 MG/2 ML SDV IV ONE (19:11)
[2018-07-25] MEDS ORDERED: FENTANYL CITRATE INJ/PF 100 MCG/2 ML AMPUL IV ONE (19:11)
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
[2018-07-25 19:26] VITALS: BP 168/90
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
== END 2018-07-25 19:11 | disposition short-term general hospital (02) ==
LOC: ER 18:47
DX: S31.125A Laceration of abdominal wall with foreign body, periumbilic region without penetration into peritoneal cavity, initial encounter (principal); W01.118A Fall on same level from slipping, tripping and stumbling with subsequent striking against other sharp object, initial encounter; I48.91 Unspecified atrial fibrillation; I50.9 Heart failure, unspecified; I11.0 Hypertensive heart disease with heart failure; Z86.718 Personal history of other venous thrombosis and embolism; Z87.442 Personal history of urinary calculi; Z90.49 Acquired absence of other specified parts of digestive tract; Z88.6 Allergy status to analgesic agent; Z79.02 Long term (current) use of antithrombotics/antiplatelets
CPT/HCPCS: 99291

== ENCOUNTER 2018-07-28 10:03 | Emergency (ER) | payer MEDICARE ==
[2018-07-28 10:15] VITALS: BP 135/88
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
--- NOTE | 2018-07-28 23:31 | EKG REPORT ---
SEVERITY:- BORDERLINE ECG - SINUS RHYTHM BORDERLINE T ABNORMALITIES, ANTERIOR LEADS : Confirmed by: Yoni Hidalgo 28-Jul-2018 23:30:29
== END 2018-07-28 10:30 | disposition left against medical advice (07) ==
LOC: ER 10:03
DX: R07.89 Other chest pain (principal); I48.91 Unspecified atrial fibrillation; Z79.01 Long term (current) use of anticoagulants; R10.13 Epigastric pain; H91.92 Unspecified hearing loss, left ear; R00.2 Palpitations; H92.09 Otalgia, unspecified ear; I10 Essential (primary) hypertension; Z91.041 Radiographic dye allergy status; Z88.5 Allergy status to narcotic agent; Z53.20 Procedure and treatment not carried out because of patient's decision for unspecified reasons
CPT/HCPCS: 93005; 93010; 99281

== ENCOUNTER 2018-08-14 19:58 | Observation (INO) | payer MEDICARE ==
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
[2018-08-14 20:59] LABS: ALANINE AMINOTRANSFERASE 37 U/L (21-72); ALBUMIN 4.2 g/dL (3.5-5.0); ALKALINE PHOSPHATASE 64 U/L (38-126); ANION GAP 7 (5-19); ASPARTATE AMINO TRANSFERASE 38 U/L (17-59); BILIRUBIN,DIRECT 0.3 mg/dL (0.0-0.4); BILIRUBIN,TOTAL 1.8 mg/dL (0.2-1.3); BLOOD UREA NITROGEN 24 mg/dL (7-20); CALCIUM 9.5 mg/dL (8.4-10.2); CARBON DIOXIDE 27 mmol/L (22-30); CHLORIDE 105 mmol/L (98-107); GLUCOSE 91 mg/dL (75-110); POTASSIUM 4.4 mmol/L (3.6-5.0); TOTAL PROTEIN 7.6 g/dL (6.3-8.2)
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
[2018-08-14 21:10] LABS: NT PRO BNP 158 pg/mL (5-900); TROPONIN I < 0.012 ng/mL
--- NOTE | 2018-08-14 21:11 | EKG REPORT ---
SEVERITY:- OTHERWISE NORMAL ECG - SINUS RHYTHM VENTRICULAR PREMATURE COMPLEX : Confirmed by: Darryl Rudd MD 14-Aug-2018 21:10:20
[2018-08-14 21:20] LABS: ABSOLUTE BASOPHILS # (AUTO) 0.1 10^3/uL (0.0-0.2); ABSOLUTE EOSINOPHILS # (AUTO) 0.2 10^3/uL (0.0-0.6); ABSOLUTE LYMPHOCYTES (AUTO) 1.9 10^3/uL (0.5-4.7); ABSOLUTE MONOCYTES (AUTO) 1.1 10^3/uL (0.1-1.4); ABSOLUTE NEUT (AUTO) 3.6 10^3/uL (1.7-8.2); BASOPHILS % (AUTO) 1.4 % (0-2); EOSINOPHILS % (AUTO) 2.6 % (0-6); HEMATOCRIT 45.7 % (37.9-51.0); HEMOGLOBIN 15.5 g/dL (13.5-17.0); LYMPHOCYTES % (AUTO) 28.4 % (13-45); MEAN CORPUSCULAR HEMOGLOBIN 29.7 pg (27.0-33.4); MEAN CORPUSCULAR HGB CONC 33.8 g/dL (32.0-36.0); MONOCYTES % (AUTO) 15.5 % (3-13); PLATELET COUNT 164 10^3/uL (150-450); RED BLOOD COUNT 5.22 10^6/uL (4.35-5.55); RED CELL DISTRIBUTION WIDTH 20.1 % (11.5-14.0); SEGMENTED NEUTROPHILS % (AUTO) 52.1 % (42-78); TOTAL CELLS COUNTED % (AUTO) 100 %; WHITE BLOOD COUNT 6.8 10^3/uL (4.0-10.5)
[2018-08-14 21:23] LABS: MEAN CORPUSCULAR VOLUME 88 fl (80-97)
[2018-08-14 21:27] LABS: INTERNATIONAL RATION (INR) 0.91; PROTHROMBIN TIME 12.7 SEC (11.4-15.4)
[2018-08-14 21:28] LABS: PARTIAL THROMBOPLASTIN TIME 30.4 SEC (23.5-35.8)
[2018-08-14] MEDS ORDERED: LORAZEPAM 1 MG TABLET PO ONE (21:33)
--- NOTE | 2018-08-14 21:40 | RADIOLOGY REPORT (SQ) ---
EXAM DESCRIPTION: [facility]: XR CHEST 1 VIEW CLINICAL HISTORY: 58 years Male, CP COMPARISON: 06/25/2018 FINDINGS: Lungs are clear, with no focal infiltrate, pneumothorax, or pleural effusion. Minimal linear scarring in the left lower lung field is similar to prior exam. Mediastinum is within normal limits for this positioning. Bony structures are unremarkable. IMPRESSION: No acute pulmonary findings.
--- NOTE | 2018-08-14 23:25 | RADIOLOGY REPORT (SQ) ---
EXAM DESCRIPTION: NM LUNG PERFUSION COMPLETED DATE/TME: 08/14/2018 21:01 CLINICAL HISTORY: 58 years Male, cp, sob, hx of dvt COMPARISON: CR, 07/18/18 RADIONUCLIDE AND DOSE: 5.26-mCi of Tc99m MAA (perfusion). LIMITATIONS: Ventilation scan not performed. Refused by patient. Anxiety, claustrophobia. Findings Small subsegmental perfusion defects at the lung apices, left more than right. Ventilation scan not performed. Impression Low probability for acute pulmonary embolus. Limitation.
[2018-08-15] MEDS ORDERED: ZOLPIDEM TARTRATE 5 MG TABLET PO PRN (00:14)
[2018-08-15] MEDS ORDERED: ONDANSETRON HCL INJ/PF 4 MG/2 ML SDV IV PRN (00:14)
[2018-08-15] MEDS ORDERED: NORMAL SALINE 1000 ML 1,000 ML IV PRN (00:14)
[2018-08-15] MEDS ORDERED: MAGNESIUM HYDROXIDE SUSP 30 ML UDCUP PO PRN (00:14)
[2018-08-15] MEDS ORDERED: MAG HYDROX/AL HYDROX/SIMETH SUSP 30 ML UDCUP PO PRN (00:14)
[2018-08-15] MEDS ORDERED: NITROGLYCERIN 0.4 MG/TAB 25 TAB/BOTTLE SL PRN (00:27)
[2018-08-15] MEDS ORDERED: MORPHINE SULFATE 10 MG/ML INJ IV PRN (00:28)
[2018-08-15] MEDS ORDERED: ASPIRIN 325 MG TABLET PO ONE (00:45)
[2018-08-15 01:36] LABS: CHOLESTEROL 205.45 mg/dL (0-200); CREATINE KINASE 124 U/L (55-170); TRIGLYCERIDES 191 mg/dL (<150)
[2018-08-15 01:47] LABS: DIRECT LDL 121 mg/dL (<100)
[2018-08-15 01:48] LABS: CREATINE KINASE MB 2.11 ng/mL (<4.55)
[2018-08-15 01:49] LABS: TROPONIN I < 0.012 ng/mL
[2018-08-15 01:52] LABS: VLDL CHOLESTEROL 38.2 mg/dL (10-31)
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
[2018-08-15] MEDS: LORAZEPAM 0.5 MG TABLET PO PRN ×3 (02:54→14:06)
[2018-08-15] MEDS ORDERED: PANTOPRAZOLE SODIUM 40 MG TABLET.DR PO SCH (06:00)
[2018-08-15] MEDS ORDERED: DILTIAZEM HCL 180 MG CAPSULE.CR PO SCH (06:00)
[2018-08-15 07:11] LABS: ARTERIAL BLOOD BASE EXCESS 4.7 mmol/L; ARTERIAL BLOOD H2CO3 1.34 mmol/L (1.05-1.35); ARTERIAL BLOOD HCO3 29.5 mmol/L (20-24); ARTERIAL BLOOD O2 SATURATION 95.6 % (94-98); ARTERIAL BLOOD PCO2 44.4 mmHg (35-45); ARTERIAL BLOOD PH 7.44 (7.35-7.45); ARTERIAL BLOOD PO2 75.6 mmHg (80-100); ARTERIAL BLOOD TOTAL CO2 30.9 mmol/L (23-27)
[2018-08-15 07:12] LABS: ARTERIAL BLOOD FIO2 ROOM AIR
[2018-08-15] MEDS ORDERED: FUROSEMIDE 20 MG TABLET PO SCH (08:00)
[2018-08-15 08:01] LABS: CREATINE KINASE MB 1.33 ng/mL (<4.55)
[2018-08-15 08:08] LABS: TROPONIN I < 0.012 ng/mL
--- NOTE | 2018-08-15 09:51 | EKG REPORT ---
SEVERITY:- BORDERLINE ECG - SINUS RHYTHM NONSPECIFIC ST-T CHANGES- INFERIOR LEADS : Confirmed by: Darryl Rudd MD 15-Aug-2018 09:51:20
[2018-08-15] MEDS ORDERED: ENOXAPARIN SODIUM INJ 40 MG/0.4 ML DISP.SYRIN SUBCUT SCH (10:00)
[2018-08-15] MEDS ORDERED: APIXABAN 5 MG TABLET PO SCH (10:00)
[2018-08-15] MEDS ORDERED: ASPIRIN 81 MG TABLET, ENT COATED PO SCH (10:00)
[2018-08-15] MEDS ORDERED: FOLIC PO SCH (12:00)
[2018-08-15] MEDS ORDERED: DOCUSATE SODIUM 100 MG CAPSULE PO SCH (12:00)
[2018-08-15] MEDS ORDERED: [UNRECOGNIZED DRUG - OTHER] PO SCH (12:00)
[2018-08-15] MEDS ORDERED: IRON PO SCH (12:00)
[2018-08-15] MEDS ORDERED: MULTIVIT MIN PO SCH (12:00)
[2018-08-15 12:14] VITALS: BP 99/67
[2018-08-15] MEDS ORDERED: SOTALOL HCL 80 MG PO SCH (12:30)
--- NOTE | 2018-08-15 13:11 | PDOC PROGRESS REPORT ---
Subjective Progress Note for:: 08/15/18 Subjective:: 58 year old male with a history of hypertension, cardiomyopathy, lower extremity DVT status post IVC filter placement, as well as paroxysmal atrial fibrillation on Eliquis who presented to the emergency room with acute onset of left-sided chest pain felt as squeezing that was mild to moderate in intensity with associated dyspnea as well as palpitations. He felt he had extra heartbeats and was fairly anxious. He has been having lower extremity edema but denies any pain. No orthopnea or paroxysmal nocturnal dyspnea. No fever or chills. No nausea vomiting or abdominal pain. No further radiation of his chest pain. Upon presentation to the emergency room his blood pressure was 138/91 with a pulse of 65 respiratory rate of 16 temperature 98.8 and pulse oximetry 96% on room air. Labs were remarkable for a BUN of 24 and creatinine 1.42 with total bilirubin of 1.8. Magnesium was 2 and troponin I less than 0.0 12 with a TSH level of 3.74. His EKG showed normal sinus rhythm with a rate of 76 with occasional premature supraventricular complexes and later normal sinus rhythm with a rate of 63. Portable chest x-ray showed no acute cardiopulmonary disease. The patient have a VQ scan that came back with low probability for PE. He was given 1 mg of p.o. Ativan as well as 325 mg p.o. aspirin. He will be admitted to an observation telemetry bed for further evaluation and management. 08/[id number]-old male with history of hypertension cardiomyopathy lower extremity DVTs atrial fibrillation on Eliquis admitted for chest tightness and palpitations associated with shortness of breath. Cardiac enzymes are negative VQ scan is negative for PE. Patient denies any chest discomfort this morning. Dr. Seymour spoke to the patient briefly. We are going to repeat the echocardiogram and EKG tomorrow. No acute events since the admission. Patient is afebrile. Patient has a cardiac catheter in [facility] be going to get the records from them. Reason For Visit: CHEST PAIN Physical Exam Vital Signs: Temp Pulse Resp BP Pulse Ox 97.9 F 89 17 99/67 L 93 08/15/18 12:09 08/15/18 12:09 08/15/18 12:09 08/15/18 12:09 08/15/18 12:09 Intake & Output 08/14/18 08/15/18 08/16/18 06:59 06:59 06:59 Weight 95.4 kg General appearance: PRESENT: no acute distress Head exam: PRESENT: atraumatic Eye exam: PRESENT: PERRLA Mouth exam: PRESENT: moist, tongue midline Teeth exam: PRESENT: poor dentation Neck exam: ABSENT: carotid bruit, JVD, lymphadenopathy, thyromegaly Respiratory exam: PRESENT: clear to auscultation natividad. ABSENT: rales, rhonchi, wheezes Cardiovascular exam: PRESENT: irregular rhythm, systolic murmur, tachycardia. ABSENT: diastolic murmur, rubs GI/Abdominal exam: PRESENT: normal bowel sounds, soft. ABSENT: distended, guarding, mass, organolmegaly, rebound, tenderness Extremities exam: PRESENT: full ROM. ABSENT: calf tenderness, clubbing, pedal edema Neurological exam: PRESENT: alert, awake, oriented to person, oriented to place, oriented to time, oriented to situation, CN II-XII grossly intact. ABSENT: m otor sensory deficit Psychiatric exam: PRESENT: appropriate affect, normal mood. ABSENT: homicidal ideation, suicidal ideation Results Laboratory Results: 08/14/18 21:05 08/14/18 20:30 08/14/18 08/14/18 08/14/18 20:30 20:30 20:30 WBC Cancelled RBC Cancelled Hgb Cancelled Hct Cancelled MCV Cancelled MCH Cancelled MCHC Cancelled RDW Cancelled Plt Count Cancelled Seg Neutrophils % Cancelled Lymphocytes % Cancelled Monocytes % Cancelled Eosinophils % Cancelled Basophils % Cancelled Absolute Neutrophils Cancelled Absolute Lymphocytes Cancelled Absolute Monocytes Cancelled Absolute Eosinophils Cancelled Absolute Basophils Cancelled Carbonic Acid HCO3/H2CO3 Ratio ABG pH ABG pCO2 ABG pO2 ABG HCO3 ABG O2 Saturation ABG Base Excess FiO2 Sodium 139.0 Potassium 4.4 Chloride 105 Carbon Dioxide 27 Anion Gap 7 BUN 24 H Creatinine 1.42 H Est GFR ( Amer) > 60 Est GFR (Non-Af Amer) 51 L Glucose 91 Calcium 9.5 Magnesium 2.0 Total Bilirubin 1.8 H AST 38 ALT 37 Alkaline Phosphatase 64 Total Protein 7.6 Albumin 4.2 Triglycerides Cholesterol LDL Cholesterol Direct VLDL Cholesterol HDL Cholesterol TSH 08/14/18 08/14/18 08/15/18 20:30 21:05 01:13 WBC 6.8 RBC 5.22 Hgb 15.5 Hct 45.7 MCV 88 D MCH 29.7 MCHC 33.8 RDW 20.1 H Plt Count 164 Seg Neutrophils % 52.1 Lymphocytes % 28.4 Monocytes % 15.5 H Eosinophils % 2.6 Basophils % 1.4 Absolute Neutrophils 3.6 Absolute Lymphocytes 1.9 Absolute Monocytes 1.1 Absolute Eosinophils 0.2 Absolute Basophils 0.1 Carbonic Acid HCO3/H2CO3 Ratio ABG pH ABG pCO2 ABG pO2 ABG HCO3 ABG O2 Saturation ABG Base Excess FiO2 Sodium Potassium Chloride Carbon Dioxide Anion Gap BUN Creatinine Est GFR ( Amer) Est GFR (Non-Af Amer) Glucose Calcium Magnesium Total Bilirubin AST ALT Alkaline Phosphatase Total Protein Albumin Triglycerides 191 H Cholesterol 205.45 H LDL Cholesterol Direct 121 H VLDL Cholesterol 38.2 H HDL Cholesterol 44 TSH 3.74 08/15/18 06:55 WBC RBC Hgb Hct MCV MCH MCHC RDW Plt Count Seg Neutrophils % Lymphocytes % Monocytes % Eosinophils % Basophils % Absolute Neutrophils Absolute Lymphocytes Absolute Monocytes Absolute Eosinophils Absolute Basophils Carbonic Acid 1.34 HCO3/H2CO3 Ratio 22:1 ABG pH 7.44 ABG pCO2 44.4 ABG pO2 75.6 L ABG HCO3 29.5 H ABG O2 Saturation 95.6 ABG Base Excess 4.7 FiO2 ROOM AIR Sodium Potassium Chloride Carbon Dioxide Anion Gap BUN Creatinine Est GFR ( Amer) Est GFR (Non-Af Amer) Glucose Calcium Magnesium Total Bilirubin AST ALT Alkaline Phosphatase Total Protein Albumin Triglycerides Cholesterol LDL Cholesterol Direct VLDL Cholesterol HDL Cholesterol TSH 08/14/18 08/15/18 08/15/18 20:30 01:13 01:13 Creatine Kinase 124 CK-MB (CK-2) 2.11 Troponin I < 0.012 < 0.012 NT-Pro-B Natriuret Pep 158 08/15/18 08/15/18 07:20 07:20 Creatine Kinase 75 CK-MB (CK-2) 1.33 Troponin I < 0.012 NT-Pro-B Natriuret Pep Impressions: Chest X-Ray 08/14/18 20:17 IMPRESSION: No acute pulmonary findings. Assessment and Plan - Diagnosis (1) Chest pain Is this a current diagnosis for this admission?: Yes Plan: Chest pain, rule out acute coronary syndrome. The patient will be admitted to an observation telemetry bed. Will follow serial cardiac enzymes and EKGs. We will obtain a cardiology consult in a.m. for further cardiac risk stratification. The patient will be placed on aspirin as well as p.r.n. sublingual nitroglycerin and morphine sulfate for pain. 08/15/[id number]-hegb-old male with multiple medical problems admitted for his chest discomfort associated with palpitations. Cardiac workup is negative so far. Patient denies any chest pains this morning. Plan is to repeat the EKG and echocardiogram in the morning. Dr. Seymour is planning to arrange for a event monitor as an outpatient. Plan to restart on her sotalol. Dr. Seymour thinking there is a possibility of tachycardia induced cardiomyopathy last time he has an echocardiogram was done shows EF of 55%. (2) Palpitations Is this a current diagnosis for this admission?: Yes Plan: He will be monitored for arrhythmia. TSH was normal. Electrolytes were within normal. His digoxin will be continued and given his history of paroxysmal atrial fibrillation will certainly resume his Eliquis, aspirin and Cardizem CD 08/15/2018-patient has atrial fibrillation on Eliquis. Elect lites are normal. Patient is on digoxin, Eliquis, Cardizem. Dr. Seymour requested me to start on sotalol. Patient heart rate is 89 today. still in atrial fibrillation. (3) Lower extremity edema Is this a current diagnosis for this admission?: Yes Plan: We will obtain bilateral lower extremity venous duplex and continue p.o. Lasix 08/15/2018-patient came in with lower extremity edema and has a history of lower leg DVT venous Doppler was requested report is pending. (4) Hypertension Is this a current diagnosis for this admission?: No Plan: His Cardizem CD will be continued 08/15/2018-patient's latest blood pressure is 105/70. Presently on losartan 50 mg p.o. daily diltiazem 360 mg in the morning. Diltiazem was discontinued and he was started back on sotalol he is taking at home, (5) Anxiety Is this a current diagnosis for this admission?: Yes Plan: His BuSpar will be continued and will place her on as needed Ativan. We will continue Seroquel as well likely from underlying depression 08/15/2018-patient came in with anxiety disorder he is taking BuSpar at home presently is on lorazepam 0.5 mg every 4 as needed and he was placed back on BuSpar 10 mg p.o. every 12 hours. She was also on Seroquel 700 mg at bedtime. (6) Atrial fibrillation Is this a current diagnosis for this admission?: No Plan: 08/15/2018-patient has chronic atrial fibrillation on Eliquis, sotalol. On Eliquis and sotalol plan is to continue the present management. - Time Time Spent with patient: 15-24 minutes Medications reviewed and adjusted accordingly: Yes Anticipated discharge: Home
--- NOTE | 2018-08-15 15:38 | RADIOLOGY REPORT (SQ) ---
EXAM DESCRIPTION: VENOUS BILATERAL LOWER COMPLETED DATE/TIME: 08/15/2018 10:56 am REASON FOR STUDY: r/o DVT COMPARISON: None. TECHNIQUE: Dynamic and static sargent scale and color images acquired of both lower extremity venous sy stems. Selected spectral images acquired with additional compression and augmentation maneuvers. Imag es stored on PACS. LIMITATIONS: None. FINDINGS: RIGHT LEG COMMON FEMORAL AND FEMORAL: Normal phasicity, compression and augmentation. No visualized echogenic m aterial on sargent scale. No defects on color images. POPLITEAL: Normal compression and augmentation. No visualized echogenic material on sargent scale. No de fects on color images. CALF VESSELS: Normal compression and augmentation. No visualized echogenic material on sargent scale. No defects on color image. GSV AND SSV: Normal compression. No visualized echogenic material on sargent scale. No defects on color images. ANY DEEP VENOUS INSUFFICIENCY: Not evaluated. ANY EVIDENCE OF POPLITEAL CYST: No. OTHER: No other significant finding. LEFT LEG COMMON FEMORAL AND FEMORAL: Normal phasicity, compression and augmentation. No visualized echogenic m aterial on sargent scale. No defects on color images. POPLITEAL: Normal compression and augmentation. No visualized echogenic material on sargent scale. No de fects on color images. CALF VESSELS: Normal compression and augmentation. No visualized echogenic material on sargent scale. No defects on color images. GSV AND SSV: Normal compression. No visualized echogenic material on sargent scale. No defects on color images. ANY DEEP VENOUS INSUFFICIENCY: Not evaluated. ANY EVIDENCE POPLITEAL CYST: No. OTHER: No other significant finding. IMPRESSION: NO EVIDENCE DVT OR SVT IN EITHER LEG. TECHNICAL DOCUMENTATION: JOB ID: [id number]- All Rights Reserved Reading location - IP/workstation name: [email or web address]
[2018-08-15] MEDS ORDERED: QUETIAPINE FUMARATE 100 MG TABLET PO SCH (22:00)
[2018-08-15] MEDS ORDERED: (PENDING PHARMACY ID) (Melatonin [Melatonin] 10 MG) PO SCH (22:00)
[2018-08-15] MEDS ORDERED: MELATONIN 5 MG TABLET PO SCH (22:00)
[2018-08-15] MEDS ORDERED: SOTALOL HCL 80 MG TABLET PO SCH (22:00)
[2018-08-16] MEDS ORDERED: DIGOXIN 0.125 MG TABLET PO SCH (10:00)
[2018-08-16] MEDS ORDERED: MULTIVITAMINS W-IRON TABLET, CHEWABLE PO SCH (10:00)
[2018-08-16] MEDS ORDERED: LOSARTAN POTASSIUM 50 MG TABLET PO SCH (10:00)
[2018-08-16] MEDS ORDERED: BUSPIRONE HCL 10 MG TABLET PO SCH (10:00)
--- NOTE | 2018-08-16 15:11 | Left Against Medical Advice ---
Against Medical Advice Admission Date/Time: 08/15/18 01:09 Primary Care Provider: PRANAY WHITE PA-C Date of Patient Emigration: 08/15/18 - Diagnosis: (1) Chest pain Is this a current diagnosis for this admission?: Yes (2) Palpitations Is this a current diagnosis for this admission?: Yes (3) Lower extremity edema Is this a current diagnosis for this admission?: Yes (4) Hypertension Is this a current diagnosis for this admission?: No (5) Anxiety Is this a current diagnosis for this admission?: Yes (6) Atrial fibrillation Is this a current diagnosis for this admission?: No - Summary: Summary: Please see Admission and Progress Notes as well. CELINE NAVARRO is a 58 M, who LEFT AGAINST MEDICAL ADVICE. The Patient was admitted on 08/15/18 01:09. 08/15/2018 58-year-old male admitted for palpitations shortness of breath and PE studies are negative cardiology consult was done in the hospital we restarted his home medications including sotalol Dr. Seymour plans to repeat the echocardiogram and to do the repeat EKG today but patient states that because of the personal issues he has to go home and left the hospital signing AMA. Me the nurse human resources operations specialist try to explain to him that in the best interest of his care he needs to stay in the hospital explained to him why ENT to have patient said he understood but he has to go home and he understood the risk of leaving the hospital without completing the treatment but he still signed AMA left the hospital.
== END 2018-08-15 15:45 | disposition left against medical advice (07) ==
LOC: ER 19:58 → EH 08-15 01:09 → 5 08-15 02:05
PROVIDERS: ADMIT Family Medicine; ATTEND Family Medicine
DX: R07.89 Other chest pain (principal); R00.2 Palpitations; R60.0 Localized edema; F41.9 Anxiety disorder, unspecified; I48.0 Paroxysmal atrial fibrillation; I42.9 Cardiomyopathy, unspecified; I49.3 Ventricular premature depolarization; I11.0 Hypertensive heart disease with heart failure; I50.9 Heart failure, unspecified; Z53.21 Procedure and treatment not carried out due to patient leaving prior to being seen by health care provider; Z79.01 Long term (current) use of anticoagulants; Z86.718 Personal history of other venous thrombosis and embolism; Z82.49 Family history of ischemic heart disease and other diseases of the circulatory system
CPT/HCPCS: 93005; 99285; 36415 ×2; 82553; 82803; 82550; 83735; 84443; 85025; 85610; 85730; 80053; 84484 ×2; 80061; 83880; 93970; 71045; 78580; 93010; G0378 ×2; A9540; A9270 ×6; J7030; Q9969

== ENCOUNTER 2018-08-21 22:22 | Inpatient (IN) | payer MEDICARE ==
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
[2018-08-21] MEDS ORDERED: LORAZEPAM INJ 2 MG/1 ML VIAL IV ONE (22:43)
[2018-08-21 23:06] LABS: ABSOLUTE BASOPHILS # (AUTO) 0.1 10^3/uL (0.0-0.2); ABSOLUTE EOSINOPHILS # (AUTO) 0.3 10^3/uL (0.0-0.6); ABSOLUTE LYMPHOCYTES (AUTO) 2.2 10^3/uL (0.5-4.7); ABSOLUTE MONOCYTES (AUTO) 0.7 10^3/uL (0.1-1.4); ABSOLUTE NEUT (AUTO) 2.3 10^3/uL (1.7-8.2); BASOPHILS % (AUTO) 1.2 % (0-2); EOSINOPHILS % (AUTO) 4.9 % (0-6); HEMOGLOBIN 14.4 g/dL (13.5-17.0); LYMPHOCYTES % (AUTO) 40.1 % (13-45); MEAN CORPUSCULAR HEMOGLOBIN 30.7 pg (27.0-33.4); MEAN CORPUSCULAR HGB CONC 34.3 g/dL (32.0-36.0); MEAN CORPUSCULAR VOLUME 89 fl (80-97); PLATELET COUNT 186 10^3/uL (150-450); RED BLOOD COUNT 4.69 10^6/uL (4.35-5.55); RED CELL DISTRIBUTION WIDTH 21.2 % (11.5-14.0); SEGMENTED NEUTROPHILS % (AUTO) 41.8 % (42-78); TOTAL CELLS COUNTED % (AUTO) 100 %; WHITE BLOOD COUNT 5.5 10^3/uL (4.0-10.5)
[2018-08-21 23:20] LABS: ALANINE AMINOTRANSFERASE 33 U/L (21-72); ALBUMIN 3.7 g/dL (3.5-5.0); ALKALINE PHOSPHATASE 49 U/L (38-126); ANION GAP 8 (5-19); ASPARTATE AMINO TRANSFERASE 30 U/L (17-59); BILIRUBIN,DIRECT 0.3 mg/dL (0.0-0.4); BILIRUBIN,TOTAL 1.7 mg/dL (0.2-1.3); BLOOD UREA NITROGEN 23 mg/dL (7-20); CALCIUM 9.1 mg/dL (8.4-10.2); CARBON DIOXIDE 26 mmol/L (22-30); CHLORIDE 105 mmol/L (98-107); GLUCOSE 127 mg/dL (75-110); POTASSIUM 3.9 mmol/L (3.6-5.0); SODIUM 139.4 mmol/L (137-145); TOTAL PROTEIN 6.7 g/dL (6.3-8.2)
--- NOTE | 2018-08-21 23:27 | RADIOLOGY REPORT (SQ) ---
EXAM DESCRIPTION: RadLex: XR CHEST 1 VIEW CLINICAL HISTORY: 58 years Male, palpitations COMPARISON: 08/14/2018 FINDINGS: Lungs are clear, with no focal infiltrate, pneumothorax, or pleural effusion. Mediastinum is within normal limits for this positioning. Bony structures are unremarkable. IMPRESSION: 1. No acute pulmonary findings.
[2018-08-22] MEDS ORDERED: MAG HYDROX/AL HYDROX/SIMETH SUSP 30 ML UDCUP PO PRN (01:14)
[2018-08-22] MEDS ORDERED: KETOROLAC TROMETHAMINE INJ/PF 30 MG/1 ML SDV IV PRN (01:18)
[2018-08-22] MEDS ORDERED: ZOLPIDEM TARTRATE 5 MG TABLET PO PRN (01:30)
[2018-08-22] MEDS ORDERED: SOTALOL HCL 80 MG TABLET PO ONE (01:30)
[2018-08-22] MEDS: APIXABAN 5 MG TABLET PO SCH ×3 (01:56→17:41)
[2018-08-22] MEDS: QUETIAPINE FUMARATE 100 MG TABLET PO SCH ×2 (01:57→21:44)
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
[2018-08-22] MEDS: LORAZEPAM 0.5 MG TABLET PO PRN ×2 (09:29→17:41)
[2018-08-22] MEDS: LOSARTAN POTASSIUM 50 MG TABLET PO SCH (09:29)
[2018-08-22] MEDS: SOTALOL HCL 80 MG TABLET PO SCH ×2 (09:30→21:37)
[2018-08-22] MEDS: ASPIRIN 81 MG TABLET, ENT COATED PO SCH (09:30)
[2018-08-22] MEDS ORDERED: (PENDING PHARMACY ID) (Buprenorphine Hcl/Naloxone Hcl [Suboxone 8 Mg-2 Mg Sl Film] 1 FILM) SL SCH (10:00)
--- NOTE | 2018-08-22 15:08 | XCELERA REPORT ---
[address] [address] Transthoracic Echocardiogram Report Name: CELINE NAVARRO Age: 58 yrs Gender: Male : 1960 Patient Status: Inpatient Patient Location: [facility]^A Study Date: 08/22/2018 09:33 AM Height: 70 in Weight: 216 lb BSA: 2.2 m2 Reason For Study: electrician assistant Ordering Physician: FLIP SCOTT Performed By: Heath Gage Interpretation Summary Study quality suboptimal with many poor images limited detailed cardiac evaluation. Lack of contrast limits evaluation of wall motion, EF estimation and to rule out intracardiac mass/thrombus. LVEF visually appears low norml at 5-55%. RV systolic function appears low normal. The transmitral spectral Doppler flow pattern is abnormal for age AV leaflets not well visualized but likely trileaflet. Doppler data provided deos not suggest any significant stenosiss. RVSP could not be estimated. The aortic root is normal size. MMode/2D Measurements & Calculations RVDd: 2.2 cm LVIDd: 5.9 cm FS: 36.4 % Ao root diam: 3.6 cm IVSd: 0.95 cm LVIDs: 3.7 cm EDV(Teich): 172.0 ml LVPWd: 0.90 cm ESV(Teich): 59.7 ml Ao root area: 10.0 cm2 LA dimension: 4.3 cm EF(Teich): 65.3 % LVOT diam: 1.5 cm LVOT area: 1.8 cm2 Doppler Measurements & Calculations MV E max pedro: MV P1/2t max pedro: Ao V2 max: LV V1 max P.3 cm/sec 80.8 cm/sec 92.1 cm/sec 2.8 mmHg MV A max pedro: MV P1/2t: 39.2 msec Ao max PG: LV V1 max: 71.1 cm/sec MVA(P1/2t): 5.6 cm2 3.4 mmHg 82.9 cm/sec MV E/A: 0.76 MV dec slope: DIANE(V,D): 1.6 cm2 603.6 cm/sec2 MV dec time: 0.12 sec PA V2 max: MV P1/2t-pr_phl: 65.2 cm/sec 39.2 msec PA max P.7 mmHg Left Ventricle LV EF is 50-55%. Left ventricular systolic function is low normal. The transmitral spectral Doppler flow pattern is abnormal for age. Atria Right atrium not well visualized secondary to technical limitations. The left atrium is not well visualized secondary to technical limitations. Mitral Valve Focal thickening with preserved opening of MV leaflets. Aortic Valve AV leaflets not well visualized but likely trileaflet. There is a peak gradient of 3 mm of Hg. Tricuspid Valve The tricuspid valve is not well visualized secondary to technical limitations. RVSP could not be estimated. Tricuspid regurgitation jet envelope not well defined to measure RV systolic pressure accurately. Pulmonic Valve The pulmonic valve is not well visualized. Great Vessels The aortic root is normal size. The aortic root is not well visualized. The inferior vena cava was not visualized. Effusions Pericardium not well visualized to rule out pericardial efffusion. : FLIP SCOTT > Bridger Swann
[2018-08-22 15:45] LABS: FREE T3 4.84 pg/mL (2.77-5.27); FREE T4 (FREE THYROXINE) 0.8 ng/dL (0.78-2.19)
--- NOTE | 2018-08-22 20:33 | Progress Note ---
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 Overnight events, vital signs, laboratory and imaging results were reviewed. Agree with the plan as established by the previous provider. (1) Cardiomyopathy Appears compensated Echocardiogram demonstrated LVEF 50-55% Continue outpatient regiment (2) Bigeminy Appears compensated and rate controlled. Monitor on continuous telemetry. TSH elevated, free t3 and t4 are normal. (3) Atrial fibrillation Rate controlled, continue Eliquis. (4) Chronic pain Resume home medication regiment now that it has been verified by pharmacy. (5) Subclinical Hypothyroidism TSH elevated to 8.46 Free T3 and T4 are normal. UpToDate recommends treatment of asymptomatic subclinical hypothyroidism when TSH is >7 for patients younger than 65 due to increased risk of cardiovascular mortality in patients in this range. As patient has cardiomyopathy and other cardiac risk factors; will start on low dose levothyroxine 25 mcg daily. Will need follow up TSH in 6-8 weeks.
--- NOTE | 2018-08-22 23:42 | EKG REPORT ---
SEVERITY:- ABNORMAL ECG - SINUS TACHYCARDIA VENTRICULAR BIGEMINY BORDERLINE T ABNORMALITIES, INFERIOR LEADS : Confirmed by: Yoni Hidalgo 22-Aug-2018 23:42:26
[2018-08-23] MEDS ORDERED: NORMAL SALINE 1000 ML 1,000 ML IV SCH (00:30)
[2018-08-23] MEDS: NORMAL SALINE 1000 ML 1,000 ML IV PRN ×2 (00:30→01:43)
[2018-08-23] MEDS: LEVOTHYROXINE SODIUM 0.025 MG TABLET PO SCH (06:05)
[2018-08-23] MEDS: LORAZEPAM 0.5 MG TABLET PO PRN ×2 (07:44→23:23)
[2018-08-23] MEDS: FUROSEMIDE 20 MG TABLET PO SCH (09:31)
[2018-08-23] MEDS: METOPROLOL SUCCINATE 50 MG TAB.SR.24H PO SCH (09:31)
[2018-08-23] MEDS: LOSARTAN POTASSIUM 50 MG TABLET PO SCH (09:31)
[2018-08-23] MEDS: APIXABAN 5 MG TABLET PO SCH ×2 (09:31→17:10)
[2018-08-23] MEDS: ASPIRIN 81 MG TABLET, ENT COATED PO SCH (09:31)
[2018-08-23] MEDS: SOTALOL HCL 80 MG TABLET PO SCH ×2 (09:32→23:17)
[2018-08-23] MEDS: TAMSULOSIN HCL 0.4 MG CAP.SR.24H PO SCH (09:32)
[2018-08-23] MEDS ORDERED: ZOLPIDEM TARTRATE 5 MG TABLET PO PRN (10:25)
--- NOTE | 2018-08-23 20:04 | EKG REPORT ---
SEVERITY:- BORDERLINE ECG - SINUS RHYTHM BORDERLINE T ABNORMALITIES, INFERIOR LEADS : Confirmed by: Arlette Seymour MD 23-Aug-2018 20:03:12
--- NOTE | 2018-08-23 20:35 | PDOC PROGRESS REPORT ---
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 The patient was seen on morning rounds. He was found resting in bed comfortably on room air. He denies any further episodes of palpitations since arrival. He reports that his symptoms began after taking his sleeping medications (seroquel, melatonin, and ambien). He states he was sitting down and then "popped up" to go do something and became lightheaded and felt palpitations. He states he sat down and the dizziness resolved, but when the palpitations did not go away, he drove himself to the fire station to be checked out. He reports that this has occurred at least one other time and that he has had similar symptoms of a racing heart on the treadmill at the gym (HR suddenly goes up from the 90-100 to 160s). He is somewhat hypervigilant regarding his pulse and state s that he checks it several times a day and is concerned about the variability in his heart rate. He reports that he is in the process of obtaining a new data center consultant (reportedly the 3rd one since the beginning of the year) to get a "third opinion." He asks to have a repeat stress test (last one done in May 2018) and to speak with our data center consultant prior to discharge. He denies fever, chills, chest pain, dyspnea, orthopnea, abdominal pain, nausea, vomiting. He denies recent medication changes. No concerns per nursing. Reason For Visit: PALPITATIONS, HEART FAILURE Physical Exam Vital Signs: Temp Pulse Resp BP Pulse Ox 97.6 F 63 16 135/76 H 96 08/23/18 15:29 08/23/18 15:29 08/23/18 15:29 08/23/18 15:29 08/23/18 15:29 Intake & Output 08/22/18 08/23/18 08/24/18 06:59 06:59 06:59 Intake Total 2844 870 Output Total 200 875 Balance -200 1969 870 Weight 98 kg 101.3 kg General appearance: PRESENT: no acute distress, obese, well-developed, well- nourished Head exam: PRESENT: atraumatic, normocephalic Eye exam: PRESENT: conjunctiva pink, EOMI, PERRLA. ABSENT: scleral icterus Ear exam: PRESENT: normal external ear exam Mouth exam: PRESENT: moist, tongue midline Neck exam: ABSENT: carotid bruit, JVD, lymphadenopathy, thyromegaly Respiratory exam: PRESENT: clear to auscultation natividad, symmetrical, unlabored. ABSENT: rales, rhonchi, wheezes Cardiovascular exam: PRESENT: RRR, +S1, +S2. ABSENT: diastolic murmur, rubs, systolic murmur Pulses: PRESENT: normal dorsalis pedis pul Vascular exam: PRESENT: normal capillary refill GI/Abdominal exam: PRESENT: normal bowel sounds, soft. ABSENT: distended, guarding, mass, organolmegaly, rebound, tenderness Rectal exam: PRESENT: deferred Extremities exam: PRESENT: full ROM. ABSENT: calf tenderness, clubbing, pedal edema Musculoskeletal exam: PRESENT: ambulatory Neurological exam: PRESENT: alert, awake, oriented to person, oriented to place, oriented to time, oriented to situation, CN II-XII grossly intact. ABSENT: motor sensory deficit Psychiatric exam: PRESENT: anxious, appropriate affect, normal mood. ABSENT: homicidal ideation, suicidal ideation Skin exam: PRESENT: dry, intact, warm. ABSENT: cyanosis, rash Results Laboratory Results: 08/21/18 22:47 08/21/18 22:47 08/21/18 08/21/18 08/22/18 22:47 22:47 02:41 Creatine Kinase 228 H Troponin I < 0.012 < 0.012 08/23/18 04:45 Creatine Kinase Troponin I < 0.012 Impressions: Chest X-Ray 08/21/18 22:43 IMPRESSION: 1. No acute pulmonary findings. Assessment and Plan - Diagnosis (1) Cardiomyopathy Qualifiers: Cardiomyopathy type: other Qualified Code(s): I42.8 - Other cardiomyopathies Is this a current diagnosis for this admission?: Yes Plan: Appears compensated Echocardiogram demonstrated LVEF 50-55% Continue outpatient regiment Spoke with Dr. Calabrese today; likely tachycardia induced. Cardiology is consulted per patient request. (2) Bigeminy Is this a current diagnosis for this admission?: Yes Plan: Bigeminy on arrival; currently NSR with infrequent PVCs Appears compensated and rate controlled. TSH elevated, free t3 and t4 are normal; have started low dose levothyroxine. Monitor on continuous telemetry. Cardiology is consulted; have adjusted Sotalol schedule. Recommend outpatient 30 day event monitoring. (3) Subclinical hypothyroidism Is this a current diagnosis for this admission?: Yes Plan: TSH elevated to 8.46 Free T3 and T4 are normal. UpToDate recommends treatment of asymptomatic subclinical hypothyroidism when TSH is >7 for patients younger than 65 due to increased risk of cardiovascular mortality in patients in this range. As patient has cardiomyopathy and other cardiac risk factors; will start on low dose levothyroxine 25 mcg daily. Will need follow up TSH in 6-8 weeks. (4) Chronic pain Is this a current diagnosis for this admission?: Yes Plan: Resume home medication regiment now that it has been verified by pharmacy. Pt advised that Suboxone is off formulary; can have medication brought from home to be verified and administered. (5) Anticoagulated Is this a current diagnosis for this admission?: Yes Plan: Chronically anticoagulated on Eliquis 5 mg BID for PAF. (6) Anxiety Is this a current diagnosis for this admission?: Yes Plan: Continue home regiment of Seroquel 300 mg qAM and 400 mg qHS. Continue Ativan 0.5 mg p.o three times daily prn. (7) Atrial fibrillation Qualifiers: Atrial fibrillation type: paroxysmal Qualified Code(s): I48.0 - Paroxysmal atrial fibrillation Is this a current diagnosis for this admission?: Yes Plan: Rate controlled, continue Eliquis. (8) Hypertension Is this a current diagnosis for this admission?: Yes Plan: Continue home dose losartan and metoprolol. Cardiac diet. - Time Time Spent with patient: 25-34 minutes Medications reviewed and adjusted accordingly: Yes Anticipated discharge: Home Within: within 24 hours
[2018-08-23] MEDS ORDERED: (PENDING PHARMACY ID) (Quetiapine Fumarate [Seroquel] 400 MG) PO SCH (22:00)
[2018-08-23] MEDS ORDERED: QUETIAPINE FUMARATE 100 MG TABLET PO SCH (22:00)
[2018-08-24] MEDS: LEVOTHYROXINE SODIUM 0.025 MG TABLET PO SCH (06:01)
[2018-08-24] MEDS: LORAZEPAM 0.5 MG TABLET PO PRN (08:53)
[2018-08-24] MEDS: APIXABAN 5 MG TABLET PO SCH (10:02)
[2018-08-24] MEDS: FUROSEMIDE 20 MG TABLET PO SCH (10:03)
[2018-08-24] MEDS: LOSARTAN POTASSIUM 50 MG TABLET PO SCH (10:03)
[2018-08-24] MEDS: METOPROLOL SUCCINATE 50 MG TAB.SR.24H PO SCH (10:03)
[2018-08-24] MEDS: ASPIRIN 81 MG TABLET, ENT COATED PO SCH (10:03)
[2018-08-24] MEDS: SOTALOL HCL 80 MG TABLET PO SCH (10:04)
[2018-08-24] MEDS: TAMSULOSIN HCL 0.4 MG CAP.SR.24H PO SCH (10:04)
[2018-08-24 12:49] VITALS: BP 113/74
--- NOTE | 2018-08-28 16:33 | PDOC DISCHARGE SUMMARY ---
General - Admit/Disc Date/PCP Admission Date/Primary Care Provider: 08/23/18 14:44 PRANAY WHITE PA-C Discharge Date: 08/24/18 - Discharge Diagnosis (1) Cardiomyopathy Is this a current diagnosis for this admission?: Yes (2) Bigeminy Is this a current diagnosis for this admission?: Yes (3) Subclinical hypothyroidism Is this a current diagnosis for this admission?: Yes (4) Chronic pain Is this a current diagnosis for this admission?: Yes (5) Anticoagulated Is this a current diagnosis for this admission?: No (6) Anxiety Is this a current diagnosis for this admission?: Yes (7) Atrial fibrillation Is this a current diagnosis for this admission?: Yes (8) Hypertension Is this a current diagnosis for this admission?: Yes - Additional Information Resuscitation Status: Full Code Discharge Diet: Cardiac Discharge Activity: Activity As Tolerated, Balance Activity w/Rest, Walk Frequently, Weigh Daily Prescriptions: Levothyroxine Sodium [Synthroid 0.025 mg Tablet] 0.025 mg PO Q6AM #30 tablet Sotalol HCl [Betapace 80 mg Tablet] 40 mg PO Q12 #60 tablet Home Medications: Apixaban [Eliquis 5 mg Tablet] 5 mg PO Q12 08/22/18 Buprenorphine HCl/Naloxone HCl [Suboxone 8 mg-2 mg Sl Film] 2 film SL DAILY 08/22/18 Furosemide [Lasix 20 mg Tablet] 20 mg PO DAILY 08/22/18 Losartan Potassium [Cozaar 50 mg Tablet] 50 mg PO DAILY 08/22/18 Melatonin 10 mg PO QHS 08/22/18 Metoprolol Succinate [Toprol Xl 50 mg Tab.sr] 50 mg PO DAILY 08/22/18 Quetiapine Fumarate [Seroquel] 300 mg PO DAILY 08/22/18 Quetiapine Fumarate [Seroquel] 400 mg PO QHS 08/22/18 Tamsulosin HCl [Flomax] 0.4 mg PO DAILY 08/22/18 Apixaban [Eliquis 5 mg Tablet] 5 mg PO BID tablet 08/23/18 Aspirin [Ecotrin 81 mg EC Tablet] 81 mg PO DAILY tabec 08/23/18 Buprenorphine HCl/Naloxone HCl [Suboxone 8 mg-2 mg Sl Film] 1 film SL .Q12 08/23/18 Levothyroxine Sodium [Synthroid 0.025 mg Tablet] 0.025 mg PO Q6AM #30 tablet 08/23/18 Lorazepam [Ativan 0.5 mg Tablet] 0.5 mg PO Q8HP PRN tablet 08/23/18 Losartan Potassium [Cozaar 50 mg Tablet] 50 mg PO DAILY tablet 08/23/18 Sotalol HCl [Betapace 80 mg Tablet] 40 mg PO Q12 #60 tablet 08/23/18 Zolpidem Tartrate [Ambien 5 mg Tablet] 5 mg PO HSP PRN tablet 08/23/18 History of Present Illness History of Present Illness: CELINE NAVARRO is a 58 year old male with a past medical history of bipolar, DVT and atrial fibrillation on Eliquis, cardiomyopathy, GERD and Suboxone dependent chronic pain who was admitted aerodynamic consultant 08/22/18 by the Technology Recruiter for complaint of palpitations and found to be in bigeminy. Hospital Course Hospital Course: Assessment and Plan (1) Cardiomyopathy Appears compensated Echocardiogram demonstrated LVEF 50-55% Continue outpatient regiment (2) Bigeminy Bigeminy on arrival; currently NSR with infrequent PVCs Appears compensated and rate controlled. TSH elevated, free t3 and t4 are normal; have started low dose levothyroxine. Monitor on continuous telemetry. Cardiology was consulted and adjusted Sotalol schedule. Dr. Seymour flag maker arranged appointment for him to see him on 09/08/2018 for a 30-day event monitor placement. (3) Subclinical hypothyroidism TSH elevated to 8.46 Free T3 and T4 are normal. UpToDate recommends treatment of asymptomatic subclinical hypothyroidism when TSH is >7 for patients younger than 65 due to increased risk of cardiovascular mortality in patients in this range. As patient has cardiomyopathy and other cardiac risk factors; will start on low dose levothyroxine 25 mcg daily. Follow-up with PCP within 6 to 8 weeks for repeat of TSH. (4) Chronic pain Resume home medication regiment now that it has been verified by pharmacy. Pt advised that Suboxone is off formulary; can have medication brought from home to be verified and administered. (5) Anticoagulated Chronically anticoagulated on Eliquis 5 mg BID for PAF. (6) Anxiety Continue home regiment of Seroquel 300 mg qAM and 400 mg qHS. Continue Ativan 0.5 mg p.o three times daily prn. (7) Atrial fibrillation Rate controlled, continued on home meds. (8) Hypertension Continue home dose losartan and metoprolol. Cardiac diet. Physical Exam Vital Signs: Temp Pulse Resp BP Pulse Ox 97.6 F 65 16 113/74 96 08/24/18 12:44 08/24/18 12:44 08/24/18 12:44 08/24/18 12:44 08/24/18 12:44 General appearance: PRESENT: no acute distress, well-developed, well-nourished Head exam: PRESENT: atraumatic, normocephalic Eye exam: PRESENT: conjunctiva pink, EOMI, PERRLA. ABSENT: scleral icterus Ear exam: PRESENT: normal external ear exam Mouth exam: PRESENT: moist, tongue midline Neck exam: ABSENT: carotid bruit, JVD, lymphadenopathy, thyromegaly Respiratory exam: PRESENT: clear to auscultation natividad. ABSENT: rales, rhonchi, wheezes Cardiovascular exam: PRESENT: irregular rhythm. ABSENT: diastolic murmur, rubs, systolic murmur Pulses: PRESENT: normal dorsalis pedis pul Vascular exam: PRESENT: normal capillary refill GI/Abdominal exam: PRESENT: normal bowel sounds, soft. ABSENT: distended, guarding, mass, organolmegaly, rebound, tenderness Rectal exam: PRESENT: deferred Extremities exam: PRESENT: full ROM. ABSENT: calf tenderness, clubbing, pedal edema Neurological exam: PRESENT: alert, awake, oriented to person, oriented to place, oriented to time, oriented to situation, CN II-XII grossly intact. ABSENT: motor sensory deficit Psychiatric exam: PRESENT: appropriate affect, normal mood. ABSENT: homicidal ideation, suicidal ideation Skin exam: PRESENT: dry, intact, warm. ABSENT: cyanosis, rash Results Laboratory Results: 08/21/18 22:47 08/21/18 22:47 08/21/18 08/21/18 08/22/18 22:47 22:47 02:41 Creatine Kinase 228 H Troponin I < 0.012 < 0.012 08/23/18 04:45 Creatine Kinase Troponin I < 0.012 Impressions: Chest X-Ray 08/21/18 22:43 IMPRESSION: 1. No acute pulmonary findings. Qualifiers - * PATIENT BEING DISCHARGED WITH ANY OF THE FOLLOWING DIAGNOSIS: No VTE patient discharged on overlapping Therapy?: Yes
== END 2018-08-24 13:00 | disposition home or self-care (01) | DRG 316 ==
LOC: ER 22:22 → EH 08-22 01:27 → 3W 08-22 04:26 → OBSVTOIN 08-23 14:44
PROVIDERS: ADMIT Internal Medicine; ATTEND Internal Medicine
DX: I42.9 Cardiomyopathy, unspecified (principal); I11.0 Hypertensive heart disease with heart failure; I50.9 Heart failure, unspecified; R00.8 Other abnormalities of heart beat; F31.9 Bipolar disorder, unspecified; K21.9 Gastro-esophageal reflux disease without esophagitis; E78.5 Hyperlipidemia, unspecified; G89.29 Other chronic pain; E02 Subclinical iodine-deficiency hypothyroidism; F41.9 Anxiety disorder, unspecified; I48.0 Paroxysmal atrial fibrillation; M54.9 Dorsalgia, unspecified; Z86.718 Personal history of other venous thrombosis and embolism; Z79.01 Long term (current) use of anticoagulants; I25.2 Old myocardial infarction; Z86.711 Personal history of pulmonary embolism; Z88.6 Allergy status to analgesic agent; Z91.041 Radiographic dye allergy status; Z79.899 Other long term (current) drug therapy; Z82.49 Family history of ischemic heart disease and other diseases of the circulatory system
CPT/HCPCS: 36415; 71045; 80053; 82550; 84439; 84443; 84481; 84484; 85025; 85652; 93005; 93010; 93306; 96374; 99285; G0378; J2060; J3490; J7030

== ENCOUNTER 2019-05-11 09:49 | Emergency (ER) | payer MEDICARE ==
[2019-05-11 10:21] VITALS: BP 124/68
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
--- NOTE | 2019-05-11 11:06 | RADIOLOGY REPORT (SQ) ---
EXAM DESCRIPTION: CHEST 2 VIEWS COMPLETED DATE/TIME: 05/11/2019 10:53 am REASON FOR STUDY: chest pain, [facility] shoulder pain COMPARISON: 08/21/2018. EXAM PARAMETERS: NUMBER OF VIEWS: two views TECHNIQUE: Digital Frontal and Lateral radiographic views of the chest acquired. RADIATION DOSE: NA LIMITATIONS: none FINDINGS: LUNGS AND PLEURA: No opacities, masses or pneumothorax. No pleural effusion. MEDIASTINUM AND HILAR STRUCTURES: No masses or contour abnormalities. HEART AND VASCULAR STRUCTURES: Heart normal size. No evidence for failure. BONES: No acute findings. HARDWARE: Clips in the upper abdomen. OTHER: No other significant finding. IMPRESSION: NO ACUTE RADIOGRAPHIC FINDING IN THE CHEST. TECHNICAL DOCUMENTATION: JOB ID: [id number] [email or web address]- All Rights Reserved Reading location - IP/workstation name: [email or web address]
[2019-05-11 11:34] LABS: HEMATOCRIT 44.1 % (37.9-51.0); HEMOGLOBIN 14.3 g/dL (13.5-17.0); MEAN CORPUSCULAR HEMOGLOBIN 26.1 pg (27.0-33.4); MEAN CORPUSCULAR HGB CONC 32.4 g/dL (32.0-36.0); MEAN CORPUSCULAR VOLUME 81 fl (80-97); PLATELET COUNT 174 10^3/uL (150-450); RED BLOOD COUNT 5.47 10^6/uL (4.35-5.55); RED CELL DISTRIBUTION WIDTH 16.8 % (11.5-14.0); WHITE BLOOD COUNT 5.2 10^3/uL (4.0-10.5)
[2019-05-11 11:53] LABS: ALBUMIN 4.5 g/dL (3.5-5.0); ALKALINE PHOSPHATASE 64 U/L (38-126); ANION GAP 11 (5-19); ASPARTATE AMINO TRANSFERASE 46 U/L (17-59); BILIRUBIN,DIRECT 0.1 mg/dL (0.0-0.4); BILIRUBIN,TOTAL 1.6 mg/dL (0.2-1.3); BLOOD UREA NITROGEN 23 mg/dL (7-20); CALCIUM 9.1 mg/dL (8.4-10.2); CARBON DIOXIDE 28 mmol/L (22-30); CHLORIDE 102 mmol/L (98-107); GLUCOSE 82 mg/dL (75-110); POTASSIUM 4.8 mmol/L (3.6-5.0); TOTAL PROTEIN 7.7 g/dL (6.3-8.2)
[2019-05-11 12:04] LABS: ABSOLUTE LYMPHOCYTES# (MANUAL) 0.6 10^3/uL (0.5-4.7); BASOPHILS % (MANUAL) 0 % (0-2); EOSINOPHILS % (MANUAL) 2 % (0-6); LYMPHOCYTES % (MANUAL) 12 % (13-45); MONOCYTES % (MANUAL) 19 % (3-13); SEGMENTED NEUTROPHILS % (MAN) 67 % (42-78); TOTAL CELLS COUNTED 100
[2019-05-11 12:06] LABS: ANISOCYTOSIS 1+; HYPOCHROMASIA SLIGHT; OVALOCYTES SLIGHT; PLATELET COMMENT ADEQUATE; TOXIC GRANULATION 1+; TOXIC VACUOLATION PRESENT
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
--- NOTE | 2019-05-11 14:40 | EKG REPORT ---
SEVERITY:- NORMAL ECG - SINUS RHYTHM : Confirmed by: Darryl Rudd MD 11-May-2019 14:39:50
== END 2019-05-11 14:59 | disposition left against medical advice (07) ==
LOC: ER 09:49
DX: R07.9 Chest pain, unspecified (principal); M25.512 Pain in left shoulder; G89.29 Other chronic pain; W11.XXXA Fall on and from ladder, initial encounter; I13.0 Hypertensive heart and chronic kidney disease with heart failure and stage 1 through stage 4 chronic kidney disease, or unspecified chronic kidney disease; I48.91 Unspecified atrial fibrillation; I11.0 Hypertensive heart disease with heart failure; I50.9 Heart failure, unspecified; Z86.718 Personal history of other venous thrombosis and embolism; Z88.6 Allergy status to analgesic agent; Z87.442 Personal history of urinary calculi; Z90.49 Acquired absence of other specified parts of digestive tract
CPT/HCPCS: 36415; 71046; 80053; 84484; 85025; 93005; 93010; 99285

== ENCOUNTER 2020-01-15 22:17 | Emergency (ER) | payer MEDICARE ==
[2020-01-15 22:28] VITALS: BP 134/78
[2020-01-15] MEDS ORDERED: NORMAL SALINE 1000 ML 1,000 ML IV ONE (22:32)
[2020-01-15] MEDS ORDERED: ONDANSETRON HCL INJ/PF 4 MG/2 ML SDV IV ONE (22:32)
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
== END 2020-01-16 03:32 | disposition left against medical advice (07) ==
LOC: ER 22:17
DX: Z53.20 Procedure and treatment not carried out because of patient's decision for unspecified reasons (principal); F41.9 Anxiety disorder, unspecified; R11.2 Nausea with vomiting, unspecified; R00.2 Palpitations; Z88.8 Allergy status to other drugs, medicaments and biological substances; I48.91 Unspecified atrial fibrillation; I50.9 Heart failure, unspecified; I11.0 Hypertensive heart disease with heart failure
CPT/HCPCS: 99281

== ENCOUNTER 2020-04-12 22:04 | Emergency (ER) | payer MEDICARE ==
[2020-04-12 22:21] VITALS: BP 122/75
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
[2020-04-12] MEDS ORDERED: LORAZEPAM 0.5 MG TABLET PO ONE (23:07)
--- NOTE | 2020-04-13 08:57 | EKG REPORT ---
SEVERITY:- NORMAL ECG - SINUS RHYTHM : Confirmed by: Memo Alcantar MD 13-Apr-2020 08:56:41
== END 2020-04-12 23:46 | disposition left against medical advice (07) ==
LOC: ER 22:04
DX: R07.9 Chest pain, unspecified (principal); R00.0 Tachycardia, unspecified; I50.9 Heart failure, unspecified; I11.0 Hypertensive heart disease with heart failure; Z88.8 Allergy status to other drugs, medicaments and biological substances; Z79.899 Other long term (current) drug therapy; I48.91 Unspecified atrial fibrillation; Z53.20 Procedure and treatment not carried out because of patient's decision for unspecified reasons
CPT/HCPCS: 93005; 99281; 93010; A9270

== ENCOUNTER 2020-05-13 14:29 | Emergency (ER) | payer MEDICARE ==
[2020-05-13 14:46] VITALS: BP 171/79
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
--- NOTE | 2020-05-13 15:33 | RADIOLOGY REPORT (SQ) ---
EXAM DESCRIPTION: CHEST 2 VIEWS IMAGES COMPLETED DATE/TIME: 05/13/2020 3:11 pm REASON FOR STUDY: chest pain, fall COMPARISON: 05/11/2019 EXAM PARAMETERS: NUMBER OF VIEWS: two views TECHNIQUE: Digital Frontal and Lateral radiographic views of the chest acquired. RADIATION DOSE: NA LIMITATIONS: none FINDINGS: LUNGS AND PLEURA: No opacities, masses or pneumothorax. No pleural effusion. MEDIASTINUM AND HILAR STRUCTURES: No masses or contour abnormalities. HEART AND VASCULAR STRUCTURES: Heart normal size. No evidence for failure. BONES: No acute findings. HARDWARE: None in the chest. OTHER: No other significant finding. IMPRESSION: NO ACUTE RADIOGRAPHIC FINDING IN THE CHEST. TECHNICAL DOCUMENTATION: JOB ID: [id number] 2010 [employer]- All Rights Reserved Reading location - IP/workstation name: [email or web address]
[2020-05-13 16:07] LABS: ABSOLUTE BASOPHILS # (AUTO) 0.1 10^3/uL (0.0-0.2); ABSOLUTE EOSINOPHILS # (AUTO) 0.1 10^3/uL (0.0-0.6); ABSOLUTE MONOCYTES (AUTO) 1.1 10^3/uL (0.1-1.4); MEAN CORPUSCULAR VOLUME 81 fl (80-97); TOTAL CELLS COUNTED % (AUTO) 100 %
[2020-05-13 16:12] LABS: ABSOLUTE LYMPHOCYTES (AUTO) 1.2 10^3/uL (0.5-4.7); ABSOLUTE NEUT (AUTO) 4.7 10^3/uL (1.7-8.2); BASOPHILS % (AUTO) 0.8 % (0-2); EOSINOPHILS % (AUTO) 1.7 % (0-6); HEMATOCRIT 48.7 % (37.9-51.0); HEMOGLOBIN 15.9 g/dL (13.5-17.0); LYMPHOCYTES % (AUTO) 16.5 % (13-45); MEAN CORPUSCULAR HEMOGLOBIN 26.5 pg (27.0-33.4); MEAN CORPUSCULAR HGB CONC 32.6 g/dL (32.0-36.0); MONOCYTES % (AUTO) 15.4 % (3-13); PLATELET COUNT 236 10^3/uL (150-450); RED BLOOD COUNT 5.99 10^6/uL (4.35-5.55); RED CELL DISTRIBUTION WIDTH 15.7 % (11.5-14.0); SEGMENTED NEUTROPHILS % (AUTO) 65.6 % (42-78); WHITE BLOOD COUNT 7.1 10^3/uL (4.0-10.5)
[2020-05-13 16:27] LABS: ALKALINE PHOSPHATASE 63 U/L (38-126); ASPARTATE AMINO TRANSFERASE 27 U/L (17-59); BILIRUBIN,DIRECT 0.1 mg/dL (0.0-0.4); BLOOD UREA NITROGEN 19 mg/dL (7-20); CHLORIDE 100 mmol/L (98-107); GLUCOSE 92 mg/dL (75-110); POTASSIUM 5.1 mmol/L (3.6-5.0); TOTAL PROTEIN 7.5 g/dL (6.3-8.2)
[2020-05-13 16:30] LABS: ALBUMIN 4.1 g/dL (3.5-5.0); ANION GAP 7 (5-19); CARBON DIOXIDE 30 mmol/L (22-30)
[2020-05-13 16:37] LABS: NT PRO BNP 28 pg/mL (<125); TROPONIN I < 0.012 ng/mL
--- NOTE | 2020-05-13 17:58 | EKG REPORT ---
SEVERITY:- NORMAL ECG - SINUS RHYTHM : Confirmed by: Memo Alcantar MD 13-May-2020 17:57:18
== END 2020-05-13 21:52 | disposition left against medical advice (07) ==
LOC: ER 14:29
DX: R07.2 Precordial pain (principal); M54.9 Dorsalgia, unspecified; W11.XXXA Fall on and from ladder, initial encounter; M79.89 Other specified soft tissue disorders; I10 Essential (primary) hypertension; I25.10 Atherosclerotic heart disease of native coronary artery without angina pectoris; Z86.718 Personal history of other venous thrombosis and embolism; Z91.041 Radiographic dye allergy status; Z53.20 Procedure and treatment not carried out because of patient's decision for unspecified reasons
CPT/HCPCS: 36415; 71046; 80053; 83880; 84484; 85025; 93005; 93010; 99281